=== PATIENT | female | born 1950 | race Caucasian/White ===

== ENCOUNTER 2023-06-15 07:32 | Outpatient (OUT) | payer MEDICARE, SELFPAY ==
[2023-06-15 08:01] LABS: Basophils Absolute Auto 0.1 10^3/uL (0.0-0.1); Basophils Percent Auto 0.6 % (0.2-2.0); Eosinophils Absolute Auto 0.9 10^3/uL (0.0-0.7); Hematocrit 44.2 % (36.0-48.0); Hemoglobin 13.7 g/dL (12.0-16.0); Immature Granulocytes Abs Auto 0.01 10^3/uL (0.00-0.03); Immature Granulocytes Pct Auto 0.1 % (0.0-0.5); Lymphocytes Absolute Auto 1.9 10^3/uL (1.2-3.8); Lymphocytes Percent Auto 24.5 % (20.5-60.0); Mean Corpuscular Hemoglobin 29.9 pg (26.7-34.0); Mean Corpuscular Volume 96.5 fL (81.0-99.0); Mean Platelet Volume 11.5 fL (9.5-13.5); Monocytes Absolute Auto 0.6 10^3/uL (0.3-0.8); Monocytes Percent Auto 7.4 % (1.7-12.0); Neutrophils Absolute Auto 4.4 10^3/uL (1.4-6.5); Neutrophils Percent Auto 56.4 % (43.0-75.0); Platelet Count 224 10^3/uL (150-450); Red Blood Count 4.58 10^6/uL (4.20-5.40); White Blood Count 7.8 10^3/uL (4.0-11.0)
[2023-06-15 08:05] LABS: Alanine Aminotransferase 16 U/L (14-59); Albumin Globulin Ratio 0.9; Albumin Level 3.5 g/dL (3.4-5.0); Alkaline Phosphatase 105 U/L (46-116); Anion Gap 10.9; Aspartate Amino Transferase 8 U/L (15-37); Bilirubin Total 0.6 mg/dL (0.2-1.0); Calcium 9.1 mg/dL (8.5-10.1); Carbon Dioxide 32.8 mmol/L (21.0-32.0); Chloride 102 mmol/L (98-107); Cholesterol 288 mg/dL (<=200); Estimated GFR (African America >60 (>=60); Estimated GFR (Non-African Ame >60 (>=60); Globulin 3.9 g/dL; Glucose 98 mg/dL (74-106); HDL Cholesterol 72 mg/dL (40-60); Potassium 3.7 mmol/L (3.5-5.1); Sodium 142 mmol/L (136-145); Total Protein 7.4 g/dL (6.4-8.2); Triglycerides 85 mg/dL (<=150)
== END 2023-06-15 07:33 | disposition home or self-care (01) ==
LOC: LAB 07:35
PROVIDERS: PCP Nurse Practitioner Family; Visit Provider Nurse Practitioner Family
DX: I10 Essential (primary) hypertension (principal)
CPT/HCPCS: 36415; 80053; 80061; 85025

== ENCOUNTER 2023-12-25 13:11 | Outpatient (OUT) | payer MEDICARE, SELFPAY ==
--- NOTE | 2023-12-25 | MM_ITS ---
Patient Name: WICHO RAYMOND MR#: [id number] : 1950 Exam Date: 12/25/2023 Ordering Doctor: LEOPOLDO CHRISTIANSON FINISHER DENTURE-C RADIOLOGY REPORT PROCEDURE: MM TOMOSYNTHESIS SCREENING BI COMPARISON: MG MAMM SCREEN 3D CHON CAD, 03/02/2022. MG MAMM DIAGNOSTIC 3D CHON CAD, 03/08/2021. MG MAMM CHON SCRN W CAD DIG, 03/17/2015. INDICATIONS: Screening for malignant neoplasm Calculator Name NCI Breast Cancer Risk Assessment Tool 5 Year Breast Cancer Risk 4.20% Lifetime Breast Cancer Risk 8.90% Personal Breast Cancer No Personal Ovarian Cancer No Treatments None Family Cancers None LOCATION: [facility] BREAST COMPOSITION: There are scattered areas of fibroglandular density. FINDINGS: DIAGNOSTIC CATEGORY 2--BENIGN FINDING: RIGHT BREAST: No significant suspicious finding. Scattered benign-appearing calcifications are present. No significant change has occurred. LEFT BREAST: Stable calcifications, postsurgical/biopsy scarring, and architectural distortion. No new findings. RECOMMENDATIONS: ROUTINE MAMMOGRAM AND CLINICAL EVALUATION IN 12 MONTHS. PLEASE NOTE: A NORMAL MAMMOGRAM DOES NOT EXCLUDE THE POSSIBILITY OF BREAST CANCER. A CLINICALLY SUSPICIOUS PALPABLE LUMP SHOULD BE BIOPSIED. Dictated by: Hilton Sheth M.D. on 12/26/2023 at 15:35 Approved by: Hilton Sheth M.D. on 12/26/2023 at 15:40
== END 2023-12-25 13:12 | disposition home or self-care (01) ==
LOC: MAMMO 13:11
PROVIDERS: PCP Nurse Practitioner Family; Visit Provider Nurse Practitioner Family
DX: Z12.31 Encounter for screening mammogram for malignant neoplasm of breast (principal)
CPT/HCPCS: 77063; 77067

== ENCOUNTER 2024-07-19 09:58 | Outpatient (OUT) | payer MEDICARE, SELFPAY ==
--- OUTSIDE RECORDS SUMMARY | 2024-07-19 10:16 | XMS_ITS | CCD ---
Author Organization [facility] Care Team Providers Care Blasting Gang Miner Name Role Phone SUKHWINDER LUNSFORD Admitting Unavailable ZIEBLAMIN, DR HILTON Razo Consulting Unavailable SUKHWINDER LUNSFORD Attending Unavailable TUAN, DR SINGH Primary Care Unavailable SUKHWINDER LUNSFORD Consulting Unavailable AUDREY, DR RANGEL Attending Unavailable AUDREY, DR RANGEL Consulting Unavailable AUDREY, DR RANGEL Admitting Unavailable TUAN, DR SINGH Primary Care Unavailable AUDREY, DR RANGEL Attending Unavailable TUAN, DR SINGH Primary Care Unavailable [place], DR YIN Barndt Consulting Unavailable AUDREY, DR RANGEL Admitting Unavailable AUDREY, DR RANGEL Consulting Unavailable CHEPE Sofia Attending Provider Jeanne Sofia Unavailable CHEPE Sofia Attending Provider [phone] NO FAMILY, PHYSICIAN Primary Care Provider Unava ilable DO Reji Uriarte Emergency Provider Quynh Lomas Unavailable [phone] Reji Uriarte Attending Unavailable Reji Uriarte Admitting Unavailable NO FAMILY, PHYSICIAN Primary Care Unavailable Jeanne Sofia Attending Unavailable Jeanne Sofia Admitting Unavailable Allergies Allergy Classification Reported Allergen(s) Allergy Type Date of Onset Reaction(s) Facility (1 source) Adhesive agent Drug allergy (disorder) 04-17-2015 [facility] Repository Medications Current Medications Medication Drug Class(es) Dates Sig (Normalized) Sig (Original) atorvastatin 10 mg oral tablet (11 sources) HMG-CoA Reductase Inhibitor Start: 01-04-2024 End: 07-10-2024 take 1 tablet by mouth once daily Atorvastatin 10 mg tablet Active 10 MG PO Daily 90 90 July 10, 2024 8:50am Start: 12-06-2023 End: 01-04-2024 take 1 tablet by mouth once daily Atorvastatin 10 mg tablet Discontinued 0 .ROUTE .COMPLEX 90 December 06, 2023 6:17pm January 04, 2024 8:15am take 1 tablet by mouth once daily Start: 12-06-2023 End: 01-04-2024 take 1 tablet by mouth once daily Atorvastatin Discontinued 0 .ROUTE .COMPLEX 90 December 06, 2023 7:17pm January 04, 2024 9:15am take 1 tablet by mouth once daily Start: 12-06-2023 End: 12-06-2023 take 1 tablet by mouth once daily Atorvastatin 10 mg tablet Discontinued 10 MG PO Daily December 05, 2023 11:00pm December 06, 2023 6:18pm Start: 06-20-2023 take 1 tablet by moe th every twenty-four hours Atorvastatin Calcium 10 MG 1 tablet Orally Once a day for 90 days May, Active carvedilol 12.5 mg oral tablet (10 sources) alpha-Adrenergic [place], beta-Adrenergic [place] Start: 01-16-2024 End: 07-10-2024 take 1 tablet by mouth twice daily at mealtime Carvedilol 12.5 mg tablet Active 0 .ROUTE .COMPLEX 180 July 10, 2024 8:50am take 1 tablet by mouth twice a day with food Start: 06-05-2023 End: 01-16-2024 take 1 tablet by mouth twice daily Carvedilol 12.5 mg tablet Discontinued 12.5 MG PO Twice daily June 05, 2023 12:00am January 16, 2024 2:17pm Carvedilol Activ e losartan potassium 50 mg oral tablet (8 sources) Angiotensin 2 Receptor [place] Start: 12-26-2023 End: 07-10-2024 take 1 tablet by mouth once daily Losartan 50 mg tablet Active 50 MG PO Daily 90 July 10, 2024 8:50am Start: 06-12-2023 take 1 tablet by moe th every twenty-four hours Losartan Potassium 50 MG 1 tablet Orally Once a day for 30 days May, Active nitrofurantoin, macrocrystals 25 mg / nitrofurantoin, monohydrate 75 mg oral capsule (4 sources) Nitrofuran Antibacterial Start: 04-05-2023 take 1 capsule by mouth every twelve hours Macrobid 100 MG 1 cap(s) Orally bid for 5 day(s) Mar, Active Start: 11-20-2018 take 1 capsule by mo uth every twelve hours Macrobid 100 MG 1 capsule with food Orally every 12 hrs for 7 day(s) October, Not-Taking Completed/Discontinued Medications Medication Drug Class(es) Dates Sig (Normalized) Sig (Original) cloNIDine hydrochloride 0.2 mg oral tablet (3 sources) Central alpha-2 Adrenergic Agonist Start: 06-05-2023 End: 12-26-2023 take 1 tablet by mouth once daily as needed Clonidine Hcl 0.2 mg tablet Discontinued 0.2 MG PO Daily as needed for hypertensive emergency June 05, 2023 1:37pm December 26, 2023 8:56am methylPREDNISolone (5 sources) Corticosteroid Start: 11-16-2015 Depo-Medrol 80 mg October, phenazopyridine hydrochloride 200 mg oral tablet (2 sources) Start: 11-20-2018 take 1 tablet by mouth every eight hours Pyridium 200 MG 1 tablet after meals Orally Three times a day for 2 day(s) October, Not-Taking Problems Active Problems Problem Classification Problem Date Documented Date Episodic/Chronic Acquired foot deformities (1 source) Bunion; Translations: [Bunion of right foot] 07-10-2024 Episodic Cancer of breast (7 sources) History of malignant neoplasm of breast; Translations: [Personal history of malignant neoplasm of breast] Episodic Disorders of lipid metabolism (9 sources) Mixed hyperlipidemia; Translations: [Mixed hyperlipidemia] Chronic Essential hypertension (13 sources) Hypertensive disorder; Translations: [Essential (primary) hypertension] Onset: 06-05-2023 06-05-2023 Chronic Genitourinary symptoms and ill-defined conditions (3 sources) Dysuria; Translations: [Dysuria] Onset: 04-05-2023 Episodic Immunizations and screening for infectious disease (1 source) Encounter for screening for human papillomavirus (HPV); Translations: [ENC SCREENING HUMAN PAPILLOMAVIRUS] Onset: 02-04-2022 Episodic Osteoporosis (1 source) Age-related osteoporosis without current pathological fracture; Translations: [AGE-REL OSTEOPOR W/O CURR PATH FX] Onset: 03-10-2022 Chronic Other screening for suspected conditions (not mental disorders or infectious disease) (9 sources) Encounter for screening mammogram for malignant neoplasm of breast; Translations: [Encounter for screening for malignant neoplasm of cervix] Onset: 02-03-2022 Episodic Residual codes; unclassified (1 source) Asymptomatic menopausal state; Translations: [ASYMPTOMATIC MENOPAUSAL STATE] Onset: 03-10-2022 Episodic Residual codes; unclassified (2 sources) Normal body mass index; Translations: [Other specified conditions influencing health status] 01-08-2024 Episodic Screening and history of mental health and substance abuse codes (1 source) Personal history of nicotine dependence Episodic Urinary tract infections (2 sources) Acute cystitis without hematuria Episodic Past or Other Problems Problem Classification Problem Date Documented Da te Episodic/Chronic Nonmalignant breast conditions (4 sources) Unspecified lump in the left breast, upper inner quadrant; Translations: [UNS LUMP IN LT BREAST UPR INR QUAD] Onset: 03-30-2021 Episodic Results Test Name Value Interpretation Reference Range Facility Activated partial thrombopla stin time (aPTT) in platelet poor plasma by coagulation aOrdered By: Reji Uriarte on 06-05-2023 aPTT Coag (PPP) [Time] 30.2 s 25.1-36.5 [facility] Comment on above: A hematocrit value g reater than 55% may lead to inaccurate results in coagulation testing. Patients having hematocrit values >55% require a special collection tube for coagulation studies. Please contact the laboratory at [phone] for redraw instructions. Alanine aminotransferase [En zymatic activity/volume] in Serum or PlasmaOrdered By: Reji Uriarte on 06-05-2023 ALT [Catalytic activity/Vol] 10 U/L 7-52 [facility] Albumin [Mass/volume] in Ser um or Plasma by Bromocresol green (BCG) dye binding methoOrdered By: Reji Uriarte on 06-05-2023 Albumin BCG dye [Mass/Vol] 4.2 g/dL 3.5-5.7 [facility] Alkaline phosphatase [Enzyma tic activity/volume] in Serum or PlasmaOrdered By: Reji Uriarte on 06-05-2023 ALP [Catalytic activity/Vol] 99 U/L 34-104 [facility] Aspartate aminotransferase [ Enzymatic activity/volume] in Serum or PlasmaOrdered By: Reji Uriarte on 06-05-2023 AST [Catalytic activity/Vol] 13 U/L 13-39 [facility] B-Type Natriuretic Peptideon 06-05-2023 Natriuretic peptide B (Bld) [Mass/Vol] 69.0 pg/mL Normal 5-100 [facility] Comment on above: Result Comment: PERF ORMED BY: [place] [address] PATHOLOGIST RETORT FURNACE HELPER LARISSA SOTO M.D. Performed By: #### P T, PTT, HS TROP, CBC, BNP, CK #### [facility] [address] Basic Metabolic Panelon 05-26 Anion gap [Moles/Vol] 10.5 mmol/L Normal 6.0-15.0 [facility] Comment on above: Performed By: #### B MP, HEPATIC #### [facility] [address] Calcium [Mass/Vol] 9.1 mg/dL Normal 8.6-10.3 [facility] Comment on above: Performed By: #### B MP, HEPATIC #### [facility] [address] [place] [address] [place] Chloride [Moles/Vol] 104 mmol/L Normal 98-107 [facility] Comment on above: Performed By: #### B MP, HEPATIC #### [facility] [address] CO2 [Moles/Vol] 27.3 mmol/L Normal 21.0-31.0 [facility] Comment on above: Performed By: #### B MP, HEPATIC #### [facility] [address] [place] [address] [place] Creatinine [Mass/Vol] 0.64 mg/dL Normal 0.60-1.20 [facility] Comment on above: Performed By: #### B MP, HEPATIC #### [facility] [address] [place] [address] [place] Creatinine Clr Calc Pharmacy 60.29 Normal [facility] Comment on above: Result Comment: PERF ORMED BY: [facility] [address] [place] [address] PATHOLOGIST RETORT FURNACE HELPER LARISSA SOTO M.D. Performed By: #### B MP, HEPATIC #### [facility] [address] [place] [address] [place] GFR/1.73 sq M.predicted MDRD (S/P/Bld) [Vol rate/Area] mL/min/{1.73_m2} Normal [facility] Comment on above: Performed By: #### B MP, HEPATIC #### [facility] [address] Glucose [Mass/Vol] 94 mg/dL Normal 70-100 [facility] Comment on above: Result Comment: [facility] Glucose Reference Range is dependent on time and content of last meal. Glucose of more than 200 mg/dL in a nonstressed, ambulatory subject supports the diagnosis of Diabetes Mellitus. ADA recommended reference range Performed By: #### B MP, HEPATIC #### [facility] [address] [place] [address] [place] Potassium [Moles/Vol] 3.8 mmol/L Normal 3.5-5.1 [facility] Comment on above: Performed By: #### B MP, HEPATIC #### [facility] [address] [place] [address] [place] Sodium [Moles/Vol] 138 mmol/L Normal 136-145 [facility] Comment on above: Performed By: #### B MP, HEPATIC #### [facility] [address] [place] [address] [place] Urea nitrogen [Mass/Vol] 16 mg/dL Normal 7-25 [facility] Comment on above: Performed By: #### B MP, HEPATIC #### [facility] [address] [place] [address] [place] Basophils Auto (Bld) [#/Vol] Ordered By: Reji Uriarte on 06-05-2023 Basophils (Bld) [#/Vol] 0.1 10*3/uL 0.0-0.2 [facility] Basophils/100 WBC Auto (Bld) Ordered By: Reji Uriarte on 06-05-2023 Basophils/100 WBC (Bld) 1.2 % . [facility] Bilirubin.direct [Mass/volum e] in Serum or PlasmaOrdered By: Reji Uriarte on 06-05-2023 Bilirubin.direct [Mass/Vol] 0.10 mg/dL 0.03-0.18 [facility] Bilirubin.total [Mass/volume ] in Serum or PlasmaOrdered By: Reji Uriarte on 06-05-2023 Bilirubin [Mass/Vol] 0.8 mg/dL 0.3-1.[address] [facility] [address] head/brain wo conon 06-05 CT head/brain wo con [facility] [address] [place] [address] [place] [address] CT Scan Report Signed Patient: Lori Raymond MR#: [id number] 882 : 1950 Acct:[id number] Age/Sex: 72 / F ADM Date: 06/05/23 Loc: ER Room: Type: PRE ER Attending Dr: Copies to: Reji Uriarte DO Ordering Provider: Reji Uriarte DO Date of Service: 06/05/23 CT/CT head/brain wo con: elevated BP, vision changes Unenhanced head CT TECHNIQUE: Contiguous axial imaging of the head. The CT exam was performed using one or more the following dose reduction techniques: Automated exposure control, adjustment of the MA and/or Kv according to patient size, or use of the iterative reconstruction technique. COMPARISON: None HISTORY: Hypertension. Visual changes. VENTRICLES: Within normal limits ATROPHY: Mild atrophy BRAIN PARENCHYMA: Decreased density of the white matter is most consistent with chronic small vessel disease. HEMORRHAGE: None HERNIATION: No mass effect or herniation INFARCTION: No recent vascular distribution infarction is seen. EXTRA-AXIAL FLUID COLLECTIONS None MIDBRAIN: Unremarkable SUZANNE: Unremarkable MEDULLA: Unremarkable SINUSES: Unremarkable ORBITS: Grossly unremarkable MASTOIDS: Unremarkable BONY STRUCTURES Intact ADDITIONAL FINDINGS: Atherosclerosis of carotid siphons. CT/CT head/brain wo con IMPRESSION: No acute findings. Impression dictated by: Tariq Shahid M.D.06/05/2023 12:50 PM Dictation Location: [place] [address] Transcribed By: [facility] 06/05/23 1259 Dictated By: Tariq Shahid DO 06/05/23 1243 Signed By: 06/05/23 1250 Normal [facility] Calcium [Mass/volume] in Ser um or PlasmaOrdered By: Reji Uriarte on 06-05-2023 Calcium [Mass/Vol] 9.1 mg/dL 8.6-10.3 [facility] Carbon dioxide, total [Moles /volume] in Serum or PlasmaOrdered By: Reji Uriarte on 06-05-2023 CO2 [Moles/Vol] 27.3 mmol/L 21.0-31.0 [facility] Chloride [Moles/volume] in S tahmina or PlasmaOrdered By: Reji Uriarte on 06-05-2023 Chloride [Moles/Vol] 104 mmol/L 98-107 [facility] Complete Blood Count Auto Di ffon 06-05-2023 Basophils (Bld) [#/Vol] 0.1 10*3/uL Normal 0.0-0.2 [facility] Comment on above: Result Comment: PERF ORMED BY: [place] [address] PATHOLOGIST [employer] F[employer]NACE HELPER LARISSA SOTO M.D. Performed By: #### P T, PTT, HS TROP, CBC, BNP, CK #### [address] Basophils/100 WBC (Bld) 1.2 % Normal . [facility] Comment on above: Performed By: #### P T, PTT, HS TROP, CBC, BNP, CK #### [facility] [address] [place] [address] [place] Eosinophils (Bld) [#/Vol] 0.8 10*3/uL High 0.0-0.45 [facility] Comment on above: Performed By: #### P T, PTT, HS TROP, CBC, BNP, CK #### [address] Eosinophils/100 WBC (Bld) 8.8 % Normal . [facility] Comment on above: Performed By: #### P T, PTT, HS TROP, CBC, BNP, CK #### [place] [address] [place] Erythrocyte distribution width (RBC) [Ratio] 13.2 % Normal 11.9-15.3 [facility] Comment on above: Performed By: #### P T, PTT, HS TROP, CBC, BNP, CK #### [facility] [address] Hematocrit (Bld) [Volume fraction] 41.9 % Normal 34.0-46.4 [facility] Comment on above: Performed By: #### P T, PTT, HS TROP, CBC, BNP, CK #### [address] Hemoglobin (Bld) [Mass/Vol] 13.9 g/dL Normal 11.8-15.4 [facility] Comment on above: Performed By: #### P T, PTT, HS TROP, CBC, BNP, CK #### [address] Lymphocytes (Bld) [#/Vol] 2.1 10*3/uL Normal 1.00-4.8 [facility] Comment on above: Performed By: #### P T, PTT, HS TROP, CBC, BNP, CK #### [address] Lymphocytes/100 WBC (Bld) 23.6 % Normal . [facility] Comment on above: Performed By: #### P T, PTT, HS TROP, CBC, BNP, CK #### [address] MCH (RBC) [Entitic mass] 30.4 pg Normal 24.7-34.3 [facility] Comment on above: Performed By: #### P T, PTT, HS TROP, CBC, BNP, CK #### [address] MCV (RBC) [Entitic vol] 91.6 fL Normal 80-100 [facility] Comment on above: Performed By: #### P T, PTT, HS TROP, CBC, BNP, CK #### [address] Mean Corpuscular HGB Conc 33.1 g/dL Normal 32.0-35.0 [facility] Comment on above: Performed By: #### P T, PTT, HS TROP, CBC, BNP, CK #### [address] Monocytes (Bld) [#/Vol] 0.6 10*3/uL Normal 0.0-0.8 [facility] Comment on above: Performed By: #### P T, PTT, HS TROP, CBC, BNP, CK #### [address] Monocytes/100 WBC (Bld) 17.60 % Normal 0.00-20.00 [facility] Comment on above: Performed By: #### P T, PTT, HS TROP, CBC, BNP, CK #### [address] Monocytes/100 WBC (Bld) 7.0 % Normal . [facility] Comment on above: Performed By: #### P T, PTT, HS TROP, CBC, BNP, CK #### [address] Neutrophils (Bld) [#/Vol] 5.2 10*3/uL Normal 1.8-7.7 [facility] Comment on above: Performed By: #### P T, PTT, HS TROP, CBC, BNP, CK #### [address] Neutrophils/100 WBC (Bld) 59.4 % Normal . [facility] Comment on above: Performed By: #### P T, PTT, HS TROP, CBC, BNP, CK #### [place] [address] [place] NRBC% 0.1 /100{WBC} Normal 0-0.5 [facility] Comment on above: Performed By: #### P T, PTT, HS TROP, CBC, BNP, CK #### [address] Platelet mean volume (Bld) [Entitic vol] 10.5 fL Normal 6.3-10.7 [facility] Comment on above: Performed By: #### P T, PTT, HS TROP, CBC, BNP, CK #### [facility] [address] Platelets (Bld) [#/Vol] 244 10*3/uL Normal 150-450 [facility] Comment on above: Performed By: #### P T, PTT, HS TROP, CBC, BNP, CK #### [facility] [address] RBC (Bld) [#/Vol] 4.58 10*6/uL Normal 3.60-5.00 [facility] Comment on above: Performed By: #### P T, PTT, HS TROP, CBC, BNP, CK #### [facility] [address] [place] [address] WBC (Bld) [#/Vol] 8.7 10*3/uL Normal 3.8-11.6 [facility] Comment on above: Performed By: #### P T, PTT, HS TROP, CBC, BNP, CK #### [facility] [address] Creatine Kinaseon 06-05-2023 CK [Catalytic activity/Vol] 41 U/L Normal 30-223 [facility] Comment on above: Performed By: #### P T, PTT, HS TROP, CBC, BNP, CK ####[facility] [address] [place] [address] Creatine kinase [Enzymatic a ctivity/volume] in Serum or PlasmaOrdered By: Reji Uriarte on 06-05-2023 CK [Catalytic activity/Vol] 41 U/L 30-223 [facility] Creatinine [Mass/volume] in Serum or PlasmaOrdered By: Reji Uriarte on 06-05-2023 Creatinine [Mass/Vol] 0.64 mg/dL 0.60-1.20 [facility] ECG 12 lead ECGon 06-05-2023 ECG 12 lead ECG [facility] [address] [place] [address] [place] [address] Electrocardiograph Report Signed Patient: Lori Raymond MR#: [id number] 882 : 1950 Acct:[id number] Age/Sex: 72 / F ADM Date: 06/05/23 Loc: ER Room: Type: [facility] ER Attending Dr: Ordering Provider: Reji Uriarte DO Date of Service: 06/05/2305/18/1201 ECG/ECG 12 lead ECG: Recheck/Abnormal Lab/Rx Copies to: Test Reason : Blood Pressure : 215/090 mmHG Vent. Rate : 060 BPM Atrial Rate : 060 BPM P-R Int : 142 ms QRS Dur : 082 ms QT Int : 396 ms P-R-T Axes : 049 057 090 degrees QTc Int : 396 ms Normal sinus rhythm Nonspecific ST and T wave abnormality Abnormal ECG When compared with ECG of 01-AUG-2014 13:30, No significant change was found Confirmed by Reji Uriarte DO ([id number]) on 06/05/2023 7:09:16 PM Referred By: Electronically Signed By:Reji Uriarte DO Transcribed By: MUS Signed By Reji Uriarte DO 3 1909 Normal [facility] Eosinophils Auto (Bld) [#/Vo l]Ordered By: Reji Uriarte on 06-05-2023 Eosinophils (Bld) [#/Vol] 0.8 10*3/uL 0.0-0.45 [facility] Eosinophils/100 WBC Auto (Bl d)Ordered By: Reji Uriarte on 06-05-2023 Eosinophils/100 WBC (Bld) 8.8 % . [facility] Erythrocyte distribution wid th Auto (RBC) [Ratio]Ordered By: Reji Uriarte on 06-05-2023 Erythrocyte distribution width (RBC) [Ratio] 13.2 % 11.9-15.3 [facility] Globulin Calc (S) [Mass/Vol] Ordered By: Reji Uriarte on 06-05-2023 Globulin (S) [Mass/Vol] 3.2 g/dL [facility] Glucose [Mass/volume] in Ser um or PlasmaOrdered By: Reji Uriarte on 06-05-2023 Glucose [Mass/Vol] 94 mg/dL 70-100 [facility] Comment on above: ADA recommended refe rence rangeRandom Glucose Reference Range is dependent on time and content of last meal. Glucose of more than 200 mg/dL in a nonstressed, ambulatory subject supports the diagnosis of Diabetes Mellitus. Hematocrit Auto (Bld) [Volum e fraction]Ordered By: Reji Uriarte on 06-05-2023 Hematocrit (Bld) [Volume fraction] 41.9 % 34.0-46.4 [facility] Hemoglobin [Mass/volume] in BloodOrdered By: Reji Uriarte on 06-05-2023 Hemoglobin (Bld) [Mass/Vol] 13.9 g/dL 11.8-15.4 [facility] Hepatic Panelon 06-05-2023 Albumin [Mass/Vol] 4.2 g/dL Normal 3.5-5.7 [facility] Comment on above: Performed By: #### B MP, HEPATIC #### [facility] [address] [place] [address] [place] Albumin/Globulin [Mass ratio] 1.3 {ratio} Normal [facility] Comment on above: Performed By: #### B MP, HEPATIC #### [facility] [address] [place] [id number] [place] ALP [Catalytic activity/Vol] 99 U/L Normal 34-104 [facility] Comment on above: Performed By: #### B MP, HEPATIC #### [facility] [address] [place] [address] [place] ALT [Catalytic activity/Vol] 10 U/L Normal 7-52 [facility] Comment on above: Performed By: #### B MP, HEPATIC #### [facility] [address] [place] [address] [place] AST [Catalytic activity/Vol] 13 U/L Normal 13-39 [facility] Comment on above: Performed By: #### B MP, HEPATIC #### [facility] [address] [place] [id number] [place] Bilirubin [Mass/Vol] 0.8 mg/dL Normal 0.3-1.0 [facility] Comment on above: Performed By: #### B MP, HEPATIC #### [facility] [address] Bilirubin,Indirect 0.7 mg/dL Normal [facility] Comment on above: Performed By: #### B MP, HEPATIC #### [facility] [address] Bilirubin.indirect [Mass/Vol] 0.10 mg/dL Normal 0.03-0.18 [facility] Comment on above: Performed By: #### B MP, HEPATIC #### [facility] [address] Globulin (S) [Mass/Vol] 3.2 g/dL Normal [facility] Comment on above: Performed By: #### B MP, HEPATIC #### [facility] [address] Protein [Mass/Vol] 7.4 g/dL Normal 6.4-8.9 [facility] Comment on above: Performed By: #### B MP, HEPATIC #### [facility] [address] [place] [address] INR in Platelet poor plasma by Coagulation assayOrdered By: Reji Uriarte on 06-05-2023 INR Coag (PPP) [Relative time] 1.0 {INR} [facility] Comment on above: INR Therapeutic Rang e A) Pre- and Peroperative OAT started two weeks before surgery. NOT HIP SURGERY: 1.5 - 2.5 HIP SURGERY: 2 - 3B) Primary and secondary prevention of venous THROMBOSIS: 2 - 3C) Active venous thrombosis, pulmonary embolismand prevention of recurrent venous thrombosis: 2 - 3D) Prevention of arterial thromboembolismincluding patients with mechanical heart valves: 3 - 4.5 Leukocytes [#/volume] correc kristan for nucleated erythrocytes in Blood by Automated counOrdered By: Reji Uriarte on 06-05-2023 WBC corrected for nucl RBC Auto (Bld) [#/Vol] 8.7 10*3/uL 3.8-11.6 [facility] Lymphocytes Auto (Bld) [#/Vo l]Ordered By: Reji Uriarte on 06-05-2023 Lymphocytes (Bld) [#/Vol] 2.1 10*3/uL 1.00-4.8 [facility] Lymphocytes/100 WBC Auto (Bl d)Ordered By: Reji Uriarte on 06-05-2023 Lymphocytes/100 WBC (Bld) 23.6 % . [facility] MCH Auto (RBC) [Entitic mass ]Ordered By: Reji Uriarte on 06-05-2023 MCH (RBC) [Entitic mass] 30.4 pg 24.7-34.3 [facility] MCHC Auto (RBC) [Mass/Vol]Or dered By: Reji Uriarte on 06-05-2023 MCHC (RBC) [Mass/Vol] 33.1 g/dL 32.0-35.0 [facility] MCV Auto (RBC) [Entitic vol] Ordered By: Reji Uriarte on 06-05-2023 MCV (RBC) [Entitic vol] 91.6 fL 80-100 [facility] Monocyte distribution width [Entitic volume] in Blood by AutomatedOrdered By: Reji Uriarte on 06-05-2023 Monocyte distribution width Auto (Bld) [Entitic vol] 17.60 % 0.00-20.00 [facility] Monocytes Auto (Bld) [#/Vol] Ordered By: Reji Uriarte on 06-05-2023 Monocytes (Bld) [#/Vol] 0.6 10*3/uL 0.0-0.8 [facility] Monocytes/100 WBC Auto (Bld) Ordered By: Reji Uriarte on 06-05-2023 Monocytes/100 WBC (Bld) 7.0 % . [facility] Natriuretic peptide B [Mass/ Vol]Ordered By: Reji Uriarte on 06-05-2023 Natriuretic peptide B (Bld) [Mass/Vol] 69.0 pg/mL 5-100 [facility] Neutrophils Auto (Bld) [#/Vo l]Ordered By: Reji Uriarte on 06-05-2023 Neutrophils (Bld) [#/Vol] 5.2 10*3/uL 1.8-7.7 [facility] Neutrophils/100 WBC Auto (Bl d)Ordered By: Reji Uriarte on 06-05-2023 Neutrophils/100 WBC (Bld) 59.4 % . [facility] No Panel InformationOrdered By: Reji Uriarte on 06-05-2023 Estimated GFR (CKD-EPI) > 60.0 mL/Min [facility] Creatinine Clearance (Chem 60.29 [facility] Nucleated erythrocytes [Pres ence] in Blood by Automated countOrdered By: Reji Uriarte on 06-05-2023 Nucleated RBC Auto Ql (Bld) 0.1 /100{WBC} 0-0.5 [facility] Partial Thromboplastin Timeo n 06-05-2023 aPTT Coag (Bld) [Time] 30.2 s Normal 25.1-36.5 [facility] Comment on above: Result Comment: A he matocrit value greater than 55% may lead to inaccurate results in coagulation testing. Patients having hematocrit values >55% require a special collection tube for coagulation studies. Please contact the laboratory at [phone] for redraw instructions. PERFORMED BY: [place] [address] PATHOLOGIST RETORT FURNACE HELPER LARISSA SOTO M.D. Performed By: #### P T, PTT, HS TROP, CBC, BNP, CK #### [facility] [address] Platelet mean volume Auto (B ld) [Entitic vol]Ordered By: Reji Uriarte on 06-05-2023 Platelet mean volume (Bld) [Entitic vol] 10.5 fL 6.3-10.7 [facility] Platelets Auto (Bld) [#/Vol] Ordered By: Reji Uriarte on 06-05-2023 Platelets (Bld) [#/Vol] 244 10*3/uL 150-450 [facility] Potassium [Moles/volume] in Serum or PlasmaOrdered By: Reji Uriarte on 06-05-2023 Potassium [Moles/Vol] 3.8 mmol/L 3.5-5.1 [facility] Protein [Mass/volume] in Ser um or PlasmaOrdered By: Reji Uriarte on 06-05-2023 Protein [Mass/Vol] 7.4 g/dL 6.4-8.9 [facility] Prothrombin Time INRon 06-05 INR Coag (PPP) [Relative time] 1.0 {INR} Normal [facility] Comment on above: Result Comment: INR Therapeutic Range A) Pre- and Peroperative OAT started two weeks before surgery. NOT HIP SURGERY: 1.5 - 2.5 HIP SURGERY: 2 - 3 B) Primary and secondary prevention of venous THROMBOSIS: 2 - 3 C) Active venous thrombosis, pulmonary embolism and prevention of recurrent venous thrombosis: 2 - 3 D) Prevention of arterial thromboembolism including patients with mechanical heart valves: 3 - 4.5 Performed By: #### P T, PTT, HS TROP, CBC, BNP, CK #### [facility] [address] [place] [id number] [facility] PT Coag (PPP) [Time] 12.2 s Normal 9.0-12.9 [facility] Comment on above: Result Comment: A he matocrit value greater than 55% may lead to inaccurate results in coagulation testing. Patients having hematocrit values >55% require a special collection tube for coagulation studies. Please contact the laboratory at [phone] for redraw instructions. Performed By: #### P T, PTT, HS TROP, CBC, BNP, CK #### [facility] [address] [place] [id number] [facility] Prothrombin time (PT)Ordered By: Reji Uriarte on 06-05-2023 PT Coag (PPP) [Time] 12.2 s 9.0-12.9 [facility] Comment on above: A hematocrit value g reater than 55% may lead to inaccurate results in coagulation testing. Patients having hematocrit values >55% require a special collection tube for coagulation studies. Please contact the laboratory at [phone] for redraw instructions. RBC Auto (Bld) [#/Vol]Ordere d By: Reji Uriarte on 06-05-2023 RBC (Bld) [#/Vol] 4.58 10*6/uL 3.60-5.00 [facility] Serum or plasma albumin/glob ulin mass ratioOrdered By: Reji Uriarte on 06-05-2023 Albumin/Globulin [Mass ratio] 1.3 {ratio} [facility] Serum or plasma anion gap de terminationOrdered By: Reji Uriarte on 06-05-2023 Anion gap [Moles/Vol] 10.5 mmol/L 6.0-15.0 [facility] Serum or plasma non-glucuron idated bilirubin measurement (mass/volume)Ordered By: Reji Uriarte on 06-05-2023 Bilirubin.indirect [Mass/Vol] 0.7 mg/dL [facility] Sodium [Moles/volume] in Ser um or PlasmaOrdered By: Reji Uriarte on 06-05-2023 Sodium [Moles/Vol] 138 mmol/L 136-145 [facility] Troponin I High Sensitivityo n 06-05-2023 Troponin I High Sensitivity 5.6 pg/mL Normal 0.0-15.0 [facility] Comment on above: Result Comment: PERF ORMED BY: [place] [address] PATHOLOGIST RETORT FURNACE HELPER LARISSA SOTO M.D. Performed By: #### P T, PTT, HS TROP, CBC, BNP, CK ####[facility] Troponin I.cardiac [Mass/vol ume] in Serum or Plasma by Detection limit <= 0.01 ng/Ordered By: Reji Uriarte on 06-05-2023 Troponin I.cardiac DL <= 0.01 ng/mL [Mass/Vol] 5.6 pg/mL 0.0-15.0 [facility] Urea nitrogen [Mass/volume] in Serum or PlasmaOrdered By: Reji Uriarte on 06-05-2023 Urea nitrogen [Mass/Vol] 16 mg/dL 7-25 [facility] WBC Auto (Bld) [#/Vol]Ordere d By: Reji Uriarte on 06-05-2023 WBC (Bld) [#/Vol] 8.7 10*3/uL 3.8-11.6 [facility] XR chest 1V portableon 06-05 XR chest 1V portable [facility] [place] [address] [place] [id number] XRay Report Signed Patient: Lori Raymond MR#: [id number] : 1950 Acct:[id number] Age/Sex: 72 / F ADM Date: 06/05/23 Loc: ER Room: Type: PRE ER Attending Dr: Copies to: Reji Uriarte DO Ordering Provider: Reji Uriarte DO Date of Service: 06/05/23 XR/XR chest 1V portable: Recheck/Abnormal Lab/Rx Plain film chest Single view HISTORY: Unable to see out of the left eye. High blood pressure. COMPARISON: 08/22/2014 FINDINGS: SUPPORT DEVICES: None POSTSURGICAL CHANGES: None HEART: Within normal limits PULMONARY DAMIR: Within normal limits MEDIASTINUM: Unremarkable LUNGS AND PLEURA: No acute lung process, pleural effusion or pneumothorax identified. Minor atelectasis. BONY STRUCTURES: Intact ADDITIONAL FINDINGS None XR/XR chest 1V portable IMPRESSION: No acute process. Impression dictated by: Tariq Shahid M.D.06/05/2023 12:30 PM Dictation Location: [place] [address] Transcribed By: [facility] 06/05/23 1230 Dictated By: Tariq Shahid DO 06/05/23 1227 Signed By: 06/05/23 1230 [facility] Urinalysis - AUTOMATEDon Appearance (U) clouyd [employer] Other Bilirubin Ql (U) Negative [employer] Other Color (U) yellow [employer] Other Glucose Ql (U) Negative [employer] Other Hemoglobin Ql (U) Negative [employer] Other Ketones Ql (U) Negative [employer] Other Leukocyte esterase Test strip Ql (U) trace [employer] Other Nitrite Ql (U) Negative [employer] Other pH (U) 7.5 [pH] [employer] Other Protein Ql (U) Negative [employer] Other Specific gravity (U) [Rel density] 1.020 [facility] Other Urobilinogen (U) [Mass/Vol] 1.0 mg/dL [employer] Other Urinalysis - AUTOMATED No [facility] Other Urine Cultureon 04-05-2023 Bacteria identified Cx Nom (U) Reason for Exam Dysuria Urine 40,000 colonies/ml mixed bacterial skin contaminants 2 Days PERFORMED BY: [place] [address] PATHOLOGIST RETORT FURNACE HELPER LARISSA SOTO M.D. Normal [facility] Comment on above: Performed By: #### C UU #### [address] Bacteria identified Cx Nom (U) [employer] Other Urine culture routineOrdered By: Jeanne Sofia on 04-05-2023 Bacteria identified Cx Nom (U) 2 Days [facility] XR DEXA BONE DENSITYon 03-02 XR DEXA BONE DENSITY EXAMINATION: XR DEX A BONE DENSITY, 03/02/2022 11:42 AM EDT HISTORY: Menopause present COMPARISON: None. TECHNIQUE: Dual-energy X-ray absorptiometry (DEXA) bone density study performed for the axial skeleton. FINDINGS: Bone mineral density AP spine L2-L4 measures 1.136 g percent meters squared. T score -0.5. WHO classification: Normal. Lowest bone mineral density left femoral neck measures 0.678 g/sq cm. T score -2.6. WHO classification: Osteoporosis IMPRESSION: Osteoporosis. High fracture risk Electronically authenticated by: YIN SCHILLING Date: 2022-03-02 15:27 Normal [facility] PAP ACOG PANEL 2: 30 to 65on 02-08-2022 . . Normal [facility] Comment on above: Performed By: #### 4 [id number] #### [facility] [address] [place] [address] Dr. Tammy Sweet Age Gdln ACOG Testing Comment Normal [facility] Comment on above: Result Comment: <21 or >65 or no age provided Performed By: #### 4 [id number] #### [facility] [address] [address] [address] Tammy Sweet DIAGNOSIS: Comment Normal [facility] Comment on above: Result Comment: NEGA TIVE FOR INTRAEPITHELIAL LESION OR MALIGNANCY. Performed By: #### 4 [id number] #### [facility] [address] [address] [address] Tammy Sweet Methodology: Comment Normal [facility] Comment on above: Result Comment: This liquid based ThinPrep(R) pap test was screened with the use of an image guided system. Performed By: #### 4 [id number] #### [facility] [address] [place] [address] Dr. Tammy Sweet Note: Comment [facility] Comment on above: Result Comment: The Pap smear is a screening test designed to aid in the detection of premalignant and malignant conditions of the uterine cervix. It is not a diagnostic procedure and should not be used as the sole means of detecting cervical cancer. Both false-positive and false-negative reports do occur. . Performed By: #### 4 [id number] #### [facility] [address] [address] [address] Tammy Sweet Performed by: Comment Normal [facility] Comment on above: Result Comment: Marlin Gonzales Electrostatic Powder Coating Technician (ASCP) Performed By: #### 4 [id number] #### [facility] [address] [place] [address] Dr. Tammy Sweet Specimen adequacy: Comment Normal [facility] Comment on above: Result Comment: Sati sfactory for evaluation. No endocervical component is identified. Performed By: #### 4 [id number] #### [facility] [address] [place] [address] Dr. Tammy Sweet Physician Referralon 021 Physician Referral [phone] [id number]:12 7 Normal [facility] Ambulatory Clinical Summaryo n 04-21-2021 Ambulatory Clinical Summary {[id number]-14- [id number]-b4-d0-t2-19-d1}C D:[id number] Normal [facility] Ambulatory Clinical Summary {[id number]-[id number]- t5-51-75-23-26-ok-34-90}C D:[id number] Normal [facility] Physician Referralon 021 Physician Referral [id number]:12 7 Normal [facility] CNOVon 04-09-2021 CNOV Office Visit (RADTSA ) ----- LORI RAYMOND ([id number]) 1950 F Date Time Provider Department 04/09/21 10:00 AM SUKHWINDER LUNSFORD During your visit today, we recorded the following information about you: Temperature Pulse Blood pressure Weight 98.2 degrees 74/minute 171/77 69.2 kg Sukhwinder Lunsford MD 04/28/2021 2:54 AM Addendum Radiation Oncology - Follow Up Note PATIENT NAME: Lori Raymond PATIENT DIAGNOSIS/PATIENT IDENTIFICATION: Ms. 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 Gong completing on 07/29/2015 (6120 cGy in 34 fractions). INTERVAL HISTORY/ROS: Ms. Raymond returns to clinic today approximately 4-1/2 years out from the completion of her radiation treatments to the left breast. She has been doing well clinically and notes an occasional twinge but no substantial pain or discomfort in the left breast or any skin irritation/breakdown. She reports intact range of motion and no signs of lymphedema. She denies feeling any new lumps or bumps. She endorses good energy appetite and hydration. She had a bilateral mammogram on 03/08/2021 which noted a 1.4 cm slightly spiculated mass in the posterior central left breast at approximately 12:00. This was confirmed on ultrasound and biopsy was recommended. Ultrasound-guided biopsy was performed in the 03/08/2000 hemoglobin returned as breast parenchyma, calcifications and debris with a definite evidence of malignancy. She otherwise denies any recent fevers, chills, headaches, difficulty with speech/swallowing, shortness of breath, chest pain/palpitations, abdominal pain, nausea, vomiting, change in bowel/urinary habits, difficulty with gait/balance, recent falls, etc. The remainder of the review of systems was performed and was otherwise noncontributory. ALLERGIES ALLERGIES No Known Allergies MEDICATIONS: No current outpatient medications on file. PHYSICAL EXAM: GENERAL: eldelry woman sitting in chair in no acute distress. VITALS: BP 171/77[repeat 182/84[ Pulse 74 Temp 98.2 Wt 152 lb 9.6 oz (69.2kg) SpO2 98% KPS: 90 HEENT: NC/AT, anicteric sclera HEART: [id number]: non-labored breathing ABDOMEN: soft MUSCULOSKELETAL: no peripheral edema, moves all extremities. NEURO: no focal deficit; AANDO X3. RADIOLOGIC DATA: Bilateral Mammogram and Left Breast US (03/08/2021) PATHOLOGIC DATA: 03/30/2021 ASSESSMENT AND PLAN: Ms. Raymond is a 70-year old woman with Stage IA ([id number]) infiltrating ductal carcinoma of the upper outer quadrant of left breast; status post lumpectomy and sentinel lymph node biopsy; status post radiation therapy to the left breast under the care of Dr. Gong completing on 07/29/2015 (6120 cGy in 34 fractions). Ms. Raymond is doing well clinically approximately 4 and half years after the completion of her radiation treatments with no appreciable sequela.. Her annual mammogram noted an abnormality in the area of the left breast which was biopsied and no evidence of malignancy was identified. She has now had multiple biopsies in this area due to abnormal imaging. 4 I will request a referral with her surgeon for further evaluation and surveillance recommendations. Otherwise I will plan to see her back in approximately 1 year with repeat mammogram. The patient is aware to contact the clinic in the interim should any questions or concerns arise. Thank you for allowing us to participate in the care of this patient. Signed by: Sukhwinder Lunsford MD I spent a total of 20 minutes on the date of the service which included preparing to see the patient, [id number] patient care and counseling and educating the patient/family/caregiver. This document has been created with the use of voice recognition technology. It may contain inaccuracies, misspellings, inaccurate syntax or inappropriate word context that are a result of the inadequacies/shortcomings of said technology/software. Referring Provider: STANTON GONG [[id number]] Allergies As of Date: 04/09/2021 (No Known Allergies) Date Reviewed: 04/09/2021 Reviewed by: Nanci Milian LPN - Fully Assessed Reason for Visit: Breast Cancer [519] Primary Visit Diagnosis:Malignant neoplasm of upper-outer quadrant of left breast in female, estrogen receptor positive (HCC) [C50.412, Z17.0] Other Visit Diagnosis:History of breast cancer in female [Z85.3] Order(s):CONSULT TO GENERAL SURGERY [9011] Order #: [id number]: 1 FUTURE Problem List As Of Date 04/09/2021 Noted Resolved Breast cancer (HCC) [C50.919] 04/10/2015 Breast cancer of upper-outer quadrant of left f*05/14/2015 History of breast cancer in female [Z85.3] 01/14/2016 Dispositio (more content not included)... Normal [facility] MAMMO POST BIOPSY LEFTon MAMMO POST BIOPSY LEFT Patient: LORI RAYMOND Exam Date: 03/30/2021 : 1950 Gender:F Ordering : DR. SUKHWINDER LUNSFORD M.D. Admission #: [id number] Family : Order #: [id number] CLICK HERE TO VIEW EXAM This report includes an Addendum and supersedes previous reports for this exam. RADIOLOGY REPORT PROCEDURE: MAMMOGRAM POST BIOPSY IMAGES COMPARISON: MAMM DIAGNOSTIC 3D CHON CAD, 03/08/2021. INDICATIONS: Lump in left breast BREAST COMPOSITION: Scattered areas fibroglandular density. FINDINGS: BIOPSY MARKER: A metallic marker has been placed in the targeted location within the upper inner quadrant, approximately 12:00 of the left breast. BREAST FINDINGS: Expected post biopsy findings. RECOMMENDATIONS: Dictated by: Hilton Sheth M.D. on 03/30/2021 at 14:22 Approved by: Hilton Sheht M.D. on 03/30/2021 at 14:23 ADDENDUM: FINDINGS: DIAGNOSTIC CATEGORY 3--PROBABLY BENIGN FINDING. THE FOLLOWING FINDING(S) HAS A HIGH PROBABILITY OF A BENIGN ETIOLOGY: RECOMMENDATIONS: SHORT TERM FOLLOW-UP DIAGNOSTIC MAMMOGRAM LEFT BREAST IN 6 MONTHS. Dictated by: Hilton Sheth M.D. on 04/08/2021 at 07:48 Approved by: Hilton Sheth M.D. on 04/08/2021 at 07:49 Normal [facility] US VAC ASST BX BRST LT W CLI Albert 03-30-2021 US VAC ASST BX BRST LT W CLIP Patient: LOIR RAYMOND Exam Date: 03/30/2021 : 1950 Gender:F Ordering : DR. SUKHIWNDER LUNSFORD M.D. Admission #: [id number] Family : Order #: [id number] CLICK HERE TO VIEW EXAM This report includes an Addendum and supersedes previous reports for this exam. RADIOLOGY REPORT PROCEDURE: ULTRASOUND BIOPSY VACCUUM ASSISTED LEFT WITH CLIP COMPARISON: MG MAMM DIAGNOSTIC 3D CHON CAD, 03/08/2021. US BREAST LEFT LIMITED, 03/08/2021. INDICATIONS: Lump in left breast DESCRIPTION: After obtaining informed consent, a vacuum assisted ultrasound-guided biopsy was performed in the usual sterile manner. The location of the biopsy was then marked as indicated below. FINDINGS: RECOMMENDATIONS: SPECIMEN #, LOCATION: 4 core samples, 12:00 Left breast near chest wall. BIOPSY NEEDLE: 13 gauge Elite (r) vacuum core biopsy needle. MARKERS(S) PLACED: A single metallic marker was placed in the appropriate targeted location. MEDICATION: Buffered 1% lidocaine with epinephrine administered locally. COMPLICATIONS: None. PATHOLOGY LAB: Pending. CONCLUSION: 1. Uneventful ultrasound-guided breast biopsy. 2. Pathology results are pending. An addendum to this report will be provided after pathology results are available. Dictated by: Hilton Sheth M.D. on 03/30/2021 at 14:20 Approved by: Hilton Sheth M.D. on 03/30/2021 at 14:22 ADDENDUM: Final pathologic diagnosis: Fragments of breast parenchyma, calcifications, and amorphous debris. Definite malignancy is not seen. This report was transmitted to the referring physician's office on April 07, 2021, and the office called to confirm receipt. Dictated by: Hilton Sheth M.D. on 04/08/2021 at 07:46 Approved by: Hilton Sheth M.D. on 04/08/2021 at 07:47 Normal [facility] 03-08-2021 CNPN Telephone (RADTSA) ----- LORI RAYMOND ([id number]) 1950 F Date Time Provider Department 03/08/21 Elaine ACOSTA During your visit today, we recorded the following information about you: David Ramirez RN 03/08/2021 9:21 AM Signed [facility] called requesting ultrasound order on patient due to abnormal Cassie. Please review and sign if agreeable. We need to fax to [phone]. DEWAYNE Londono MD 03/08/2021 9:28 AM Signed Signed - thanks! David Ramirez RN 03/08/2021 11:25 AM Signed Order faxed. David Ramirez RN Allergies As of Date: 03/08/2021 (No Known Allergies) Date Reviewed: 02/23/2020 Reviewed by: Sukhwinder Lunsford - Fully Assessed Reason for Visit: Orders [681] Primary Visit Diagnosis:History of breast cancer in female [Z85.3] Order(s):US BREAST LTD LT [[id number]] Order #: [id number] FUTURE Problem List As Of Date 03/08/2021 Noted Resolved Breast cancer (HCC) [C50.919] 04/10/2015 Breast cancer of upper-outer quadrant of left f*05/14/2015 History of breast cancer in female [Z85.3] 01/14/2016 Encounter Status:Closed by DAVID RAMIREZ on 03/08/21 [facility] 02-17-2021 CNPN Telephone (RADTSA) ----- LORI RAYMOND ([id number]) 1950 F Date Time Provider Department 02/17/21 SUKHWINDER LUNSFORD During your visit today, we recorded the following information about you: Nanci Milian LPN 02/17/2021 11:50 AM Signed I called to get an update on the status of Lori's mammogram as she has not had one since 01/17/20. She said she's been too busy to get her mammogram done and she's taking care of her who recently broke his arm. She would like to cancel her appt with Dr. Lunsford on 02/22/21 and she will call back to reschedule once she schedules her mammogram appt at [facility]. Clerical: Please cancel 02/22/[address] Lunsford. Pt will call back to reschedule. DR. Lunsford: Please sign new mammogram order as the one in [facility] will on 02/22/21. ELIZABETH Landaverde Sec 02/17/2021 11:55 AM Signed cxed appointment for dr yash Milian LPN 02/23/2021 11:37 AM Signed Mammogram order faxed to [facility]. Nanci Milian LPN Allergies As of Date: 02/17/2021 (No Known Allergies) Date Reviewed: 02/23/2020 Reviewed by: Sukhwinder Lunsford - Fully Assessed Reason for Visit: Appointment [186] Primary Visit Diagnosis:History of breast cancer in female [Z85.3] Order(s):[facility] DI[facility]ILAT [[id number]] Order #: [id number] FUTURE Problem List As Of Date 02/17/2021 Noted Resolved Breast cancer (HCC) [C50.919] 04/10/2015 Breast cancer of upper-outer quadrant of left f*05/14/2015 History of breast cancer in female [Z85.3] 01/14/2016 Encounter Status:Closed by NANCI MILIAN on 02/23/21 Normal [facility] Vital Signs Date Time Vital Sign Value Performing Clinician Facility 07-10-2024 08:44-0500 Body height 167.64 cm [facility] 07-10-2024 08:25-0500 Body mass index (BMI) [Ratio] 25 kg/m2 [facility] 07-10-2024 08:25-0500 Body temperature 96.4 [degF] [facility] 07-10-2024 08:25-0500 Body weight 70.36 kg [facility] 07-10-2024 08:25-0500 Diastolic blood pressure 78 mm[Hg] [facility] 07-10-2024 08:25-0500 Heart rate 64 /min [facility] 07-10-2024 08:25-0500 SaO2% (BldA) [Mass fraction] 99 % [facility] 07-10-2024 08:25-0500 Systolic blood pressure 132 mm[Hg] [facility] 01-08-2024 09:51-0400 Body height 167.64 cm [facility] 01-08-2024 09:51-0400 Body mass index (BMI) [Ratio] 25 kg/m2 [facility] 01-08-2024 09:51-0400 Body weight 70.3 kg [facility] 01-08-2024 09:51-0400 Diastolic blood pressure 78 mm[Hg] [facility] 01-08-2024 09:51-0400 Heart rate 58 /min [facility] 01-08-2024 09:51-0400 SaO2% (BldA) [Mass fraction] 98 % [facility] 01-08-2024 09:51-0400 Systolic blood pressure 136 mm[Hg] [facility] 07-10-2023 10:30-0500 Body height 167.64 cm [facility] Ces[facility] Other [employer] Other 07-10-2023 10:30-0500 Body mass index (BMI) [Ratio] 24.85 kg/m2 [facility] Carar Other [employer] Other 07-10-2023 10:30-0500 Body weight 69.85 kg Quynh Cesilia Other [employer] Other 07-10-2023 10:30-0500 Diastolic blood pressure 78 mm[Hg] [facility] Cesilia Other [employer] Other 07-10-2023 10:30-0500 SaO2% (BldA) [Mass fraction] 97 % [facility] Cesilia Other [employer] Other 07-10-2023 10:30-0500 Systolic blood pressure 130 mm[Hg] [facility] Cesilia Other [employer] Other 06-12-2023 11:00-0500 Body height 167.64 cm [facility]yn[facility] Cesilia Other [employer] Other 06-12-2023 11:00-0500 Body mass index (BMI) [Ratio] 24.79 kg/m2 [facility] Cesilia Other [employer] Other 06-12-2023 11:00-0500 Body weight 69.67 kg Quynh Cesilia Other [employer] Other 06-12-2023 11:00-0500 Diastolic blood pressure 96 mm[Hg] [facility] Cesilia Other [employer] Other 06-12-2023 11:00-0500 SaO2% (BldA) [Mass fraction] 96 % Quyn[facility] Cesilia Other [employer] Other 06-12-2023 11:00-0500 Systolic blood pressure 168 mm[Hg] [facility]yn[facility] Cesilia Other [employer] Other 06-05-2023 13:45-0500 Diastolic blood pressure 63 mm[Hg] PHYSICIAN NO [facility] 06-05-2023 13:45-0500 Heart rate 62 /min PHYSICIAN NO [facility] 06-05-2023 13:45-0500 Respiratory rate 18 /min PHYSICIAN NO [facility] 06-05-2023 13:45-0500 SaO2% (BldA) [Mass fraction] 98 % PHYSICIAN NO [facility] 06-05-2023 13:45-0500 Systolic blood pressure 133 mm[Hg] PHYSICIAN NO [facility] 06-05-2023 11:57-0500 Body height 165.1 cm PHYSICIAN NO [facility] 06-05-2023 11:57-0500 Body temperature 97.5 [degF] PHYSICIAN NO [facility] 06-05-2023 11:57-0500 Body weight 69.25 kg PHYSICIAN NO [facility] 04-05-2023 09:40-0400 Body height 167.64 cm Jeanne Sofia Other [facility] Other 04-05-2023 09:40-0400 Body mass index (BMI) [Ratio] 24.21 kg/m2 Jeanne Sofia Other [facility] Other 04-05-2023 09:40-0400 Body temperature 97.9 [degF] Jeanne Sofia Other [facility] Other 04-05-2023 09:40-0400 Body weight 68.04 kg Jeanne Sofia Other [facility] Other 04-05-2023 09:40-0400 Diastolic blood pressure 100 mm[Hg] Jeanne Sofia Other [facility] Other 04-05-2023 09:40-0400 Respiratory rate 18 /min Jeanne Sofia Other [facility] Other 04-05-2023 09:40-0400 SaO2% (BldA) [Mass fraction] 97 % Jeanne Sofia Other [facility] Other 04-05-2023 09:40-0400 Systolic blood pressure 160 mm[Hg] Jeanne Sofia Other [facility] Other Encounters Encounter Date Encounter Type Care Provider Facility Start: 07-10-2024 End: 07-10-2024 ambulatory [facility] Work Phone: Start: 07-10-2024 End: 07-10-2024 Patient encounter procedure [facility] Physician [facility] Work Phone: Start: 01-08-2024 End: 01-08-2024 ambulatory [facility] Work Phone: Start: 01-08-2024 End: 01-08-2024 Patient encounter procedure [facility] Physician [facility] Work Phone: Start: 07-10-2023 End: 07-10-2023 ambulatory Quynh Lomas Other [facility] Other Start: 07-10-2023 Office outpatient visit 15 minutes Quynh Stahlbehzad [facility] Start: 06-16-2023 End: 06-16-2023 ambulatory Quynh Stahllisachaya Other [facility] Other Start: 06-16-2023 Telephone encounter Quynh soriano [facility] Start: 06-12-2023 End: 06-12-2023 ambulatory Quynh Stahljuanfermin Other [facility] Other Start: 06-12-2023 Office outpatient ne w 30 minutes Quynh Stahlbehzad [facility] Start: 06-05-2023 End: 06-05-2023 Emergency department patient visit Reji Uriarte Facility:[facility] Start: 06-05-2023 End: 06-05-2023 Emergency department patient visit PHYSICIAN WHITNEY GRANADO [facility] Work Phone: Start: 04-05-2023 Office outpatient ne w 20 minutes Jeanne Sofia [facility] Start: 04-05-2023 End: 04-05-2023 ambulatory Jeanne Sofia Facility:[facility] Start: 04-05-2023 End: 04-05-2023 ambulatory [employer] Jeanne Sofia Work Phone: [facility] Work Phone: Start: 04-05-2023 End: 04-05-2023 Departed Referred [employer] Jeanne Kimberlyn Work Phone: [facility] [place] Work Phone: Start: 03-02-2022 End: 03-03-[address] CLAIRE VENTURA Facility:[facility] Start: 02-03-2022 End: 02-03-[address] CLAIRE VENTURA Facility:[facility] Start: 03-30-2021 End: 03-30-2021 ambulatory SUKHWINDER LUNSFORD Facility:[facility] Procedures Date Procedure Procedure Detail Performing Clinician Start: 06-05-2023 Plain chest X-ray PHYSI BOGDAN NO FAMILY Start: 06-05-2023 CT of head without contrast PHYSICIAN NO FAMILY Start: 04-05-2023 Urine culture PHYSICIAN NO FAMILY Plan of Treatment Date Care Activity Detail Author Start: 07-10-2024 Patient referral [facility] Work Phone: Start: 04-05-2023 Bacteria identified in Urine by Culture [facility] Comprehensive metabo lic 2000 panel - Serum or Plasma [facility] Patient Education High Blood Pre ssure (DC) [facility] Work Phone: Patient referral [facility] Work Phone: [facility] Payers Date Payer Category Payer Self-pay 1961 Medicare [id number] 1961 Unknown [id number] 1950 Unknown [id number] 1950 Unknown [id number] 1950 Unknown [id number] Unknown Regular Auto/Liability [id number] Unknown [id number] Unknown [id number] Social History Date Type Detail Facility Tobacco smoking status NHIS Unknown if ever smoked [facility] Work Phone: Start: 1950 Sex Assigned At Female F [facility] Sex Assigned At Sex Assigned At Bir th [facility] [employer] Other Start: 06-05-2023 End: 01-08-2024 Tobacco smoking status NHIS Ex-smoker (finding) [facility] Start: 07-10-2024 Sex Female (finding) [facility] Clinical Notes 04-10-2021 to 07-10-2023 Note Date & Type Note Facility 07-10-2023 Evaluation note Encounter Date Diagnosis Assessment Notes Jun, Primary hypertension (ICD-10 - I10) To goal. Prior to your visit today we reviewed your chart and outlined the tetsing and treatment needed for your care. We discussed the possible complications of high blood pressure, including increased risk for heart disease, stroke, and kidney disease. Our goal is to keep your blood pressure below 130/85 (an preferably < 120/80) and maintain a healthy weight with a BMI less than 26. We are working together to acheive these goals with the following plan; healthier diet, increased activity and exercise, understanding your medicaitons, and your complaince. You have been given relevant education handouts. [facility] Other 12-22-2023 Evaluation note* Encounter Date Diagnosis Assessment Notes Treatment Notes Treatment Clinical Notes May, Mixed hyperlipidemia (ICD-10 - E78.2) [facility] Other 12-18-2023 Evaluation note* Encounter Date Diagnosis Assessment Notes Treatment Notes Treatment Clinical Notes May, Primary hypertension (ICD-10 - I10) Not to goal. Take medication as prescribed, keep follow up appointments, get any testing that's been ordered done in a timely fashion. Do not smoke. Call if any questions or problems. For Hypertension: Patient is advised to work on healthy diet choices and appropriate servings, weight control, regular exercise as directed, and salt avoidance. Monitor blood pressures at home and call if above target. Prior to your visit today we reviewed your chart and outlined the tetsing and treatment needed for your care. We discussed the possible complications of high blood pressure, including increased risk for heart disease, stroke, and kidney disease. Our goal is to keep your blood pressure below 130/85 (an preferably < 120/80) and maintain a healthy weight with a BMI less than 26. We are working together to acheive these goals with the following plan; healthier diet, increased activity and exercise, understanding your medicaitons, and your complaince. You have been given relevant education handouts. May, Mixed hyperlipidemia (ICD-10 - E78.2) WIll repeat labs, has not had any in 2 years. May, Encounter for screening mammogram for malignant neoplasm of breast (ICD-10 - Z12.31) Patient is due for her routine yearly screening mammogram. Screening mammogram ordered today. May, History of breast cancer (ICD-10 - Z85.3) May, Former smoker (ICD-10 - Z87.891) [facility] Other 10-11-2023 Evaluation note* Encounter Date Diagnosis Assessment Notes Treatment Notes Treatment Clinical Notes Mar, Dysuria (ICD-10 - R30.0) Mar, Acute cystitis without hematuria (ICD-10 - N30.00) Drink plenty fluids, get plenty of rest. Take the Macrobid as prescribed until gone. Take Tylenol or Motrin as needed for aches pains or fevers. Follow-up with your family physician if no improvement in 2 to 3 days [facility] Other 10-27-2021 NoteChief Complaint consultation to review breast pathology HPI Staff 70 year old female presents on consultation from Dr. Lunsford to review pathology from needle localized biopsy left breast. Pathology completed 03/30/21 with parenchyma, calcifications and amorphous debris. History of left breast cancer 2014, received radiation as treatment. History of Present Illness 70 yo female with h/o htn, hyperlipidemia, referred for evaluation after left breast US-guided corebiopsy for new 1.2 cm spiculated lesion seen on screening mammogram and US; 4 core biopsies obtained; + calcifications and amorphous material on pathology, no suspicious cells; patient denies changesin breast self-exam; h/o small, several mm invasive breast cancer in 2014 treated with lumpectomy and XRT; on chemo; area in question near lumpectomy site; no asa or NSAID use; no tobacco use; no fmhx of breast or ovarian cancer. Review of Systems PHQ Score Initial Depression Screen Score: 0 ROS - Provider Constitutional: no fever, no sweats, no weight loss. Eyes: no glasses, no blurred vision, no visual loss. ENMT: no dentures, no hoarseness, no swallowing difficulties, no hearing loss, no ear infection(s),no nose bleeds. Cardiovascular: normal blood pressure, no chest pain, regular heartbeat, no heart murmur. Respiratory: no shortness of breath, no cough, no asthma, no wheezing. Gastrointestinal: no nausea, no vomiting, no diarrhea, no constipation, no blood in stool, no change in bowel habits, no abdominal pain, no hepatitis. Genitourinary: no kidney stones, no urine infection, no dysuria. Musculoskeletal: no pain, no weakness. Skin: no changing moles, no rash, no skin lumps. Neurologic: no seizures, no epilepsy, no headache. Psychiatric: no emotional or psychiatric problem. Heme/Lymph: no bleeding problems, no anemia, no blood clots, no transfusions. Allergy/Immunologic: no swollen lymph nodes/glands, no IV drug abuse. Other: Additional ROS info: Except as noted in the above Review of Systems and in the History of Present Illness, all other systems have been reviewed and are negative or noncontributory. Physical Exam Vitals & Measurements T: 36.3 ?C (Temporal Artery) HR: 72(Peripheral) RR: 16 BP: 128/92 HT: 165.1 cm HT: 165.1 cm WT: 69.1 kg WT: 69.1 kg BMI: 25.35 HEENT: normal conjunctiva, sclera clear, no scleral icterus, EOM intact, PERRLA. oral mucosa moist without lesions Neck: trachea midline , no mass, symmetric, no thyromegaly or nodules. no adenopathy Respiratory: lungs CTA, respirations non labored. Cardiovascular: regular rate and rhythm, no murmur, , no pedal edema or varicosities. Chest (Breasts): , no discharge, no palpable breast or axillary lumps, masses or tenderness. well-healed scar left medial breast, some thickening, no skin changes or retraction; Gastrointestinal: soft, non distended, no tenderness, no masses, no palpable hernias, diastasis recti no, no hepatosplenomegaly. normal bs Lymphatic: no cervical adenopathy, no axillary adenopathy, Musculoskeletal: normalgait, digits and nails without infection, nodes, cyanosis, clubbing. Skin: no rashes, no lesions, no ulcers, no subcutaneous nodules, induration. Psychiatric/Neuro: oriented to time, place, person, judgement normal, affect appropriate for age, insight intact, no focal deficits. Tests: x-rays reviewed, review of old records completed, Discussed surgical options, risks, and possible complications with patient. Assessment/Plan 1. Abnormal mammogram of left breast (R92.8: Other abnormal and inconclusive findings on diagnosticimaging of breast) 4 core biopsy samples through area with no suspicious cells; recommend f/u left mammogram in 6 months for new baseline study; call sooner if problems/questions; continue self-exams. 2. History of breast cancer (Z85.3: Personal history of malignant neoplasm of breast) see # 1 Follow-up No qualifying data available Problem List/Past Medical History Ongoing Abnormal mammogram of left breast BMI 25.0-25.9,adult History of breast cancer HTN (hypertension) Hypercholesterolemia Historical No qualifying data Procedure/Surgical History Ultrasound guided needle localization of lesion of left breast (03/30/2021), Stereotactically guided core needle biopsy of breast (05/16/2018), Colonoscopy (04/22/2015), Stereotactically guided core needle biopsy of breast (04/22/2015), Excision sebaceous cyst, Lumpectomy of left breast, Tonsillectomy, Tubal ligation, Wide excision. Medications atorvastatin 40 mg Tab, 40 mg= 1 tab(s), Oral, Daily carvedilol 12.5 mg Tab, 12.5 mg= 1 tab(s), Oral, BID Allergies No Known Allergies No Known Medication Allergies Social History Alcohol - Denies Alcohol Use, 04/21/2021 Substance Abuse - Denies Substance Abuse, 04/21/2021 Tobacco Former smoker, quit more than 30 days ago Tobacco Use:. Never Smokeless Tobacco Use:. Cigarettes, Started age 30.0 Years. Stopped age 60 Years., (more content not included)...[facility] HospitalComment on above:Result Comment: Electronically Signed By: RENITA UGARTE, Eric Romero\Date and Time Signed: 04/21/21 20:49 [id number] NoteHNO ID: [id number] Author: Sukhwinder Lunsford MD Service: ? Author Type: Physician Type: Progress Notes Filed: 04/28/2021 2:54 AM Note Text: Radiation Oncology - Follow Up Note PATIENT NAME: Lori Raymond PATIENT DIAGNOSIS/PATIENT IDENTIFICATION: Ms. 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 Gong completing on 07/29/2015 (6120 cGy in 34 fractions). INTERVAL HISTORY/ROS: Ms. Raymond returns to clinic today approximately 4-1/2 years out from the completion of her radiation treatments to the left breast. She has been doing well clinically and notes an occasional twinge but no substantial pain or discomfort in the left breast or any skin irritation/breakdown. She reports intact range of motion and no signs of lymphedema. She denies feeling any new lumps or bumps. She endorses good energy appetite and hydration. She had a bilateral mammogram on 03/08/2021 which noted a 1.4 cm slightly spiculated mass in the posterior central left breast at approximately 12:00. This was confirmed on ultrasound and biopsy was recommended. Ultrasound-guided biopsy was performed in the 03/08/2000 hemoglobin returned as breast parenchyma, calcifications and debris with a definite evidence of malignancy. She otherwise denies any recent fevers, chills, headaches, difficulty with speech/swallowing, shortness of breath, chest pain/palpitations, abdominal pain, nausea, vomiting, change in bowel/urinary habits, difficulty with gait/balance, recent falls, etc. The remainder of the review of systems was performed and was otherwise noncontributory. ALLERGIES ALLERGIES No Known Allergies MEDICATIONS: No current outpatient medications on file. PHYSICAL EXAM: GENERAL: eldelry woman sitting in chair in no acute distress. VITALS: BP 171/77[repeat 182/84[ Pulse 74 Temp 98.2 Wt 152 lb 9.6 oz (69.2kg) SpO2 98% KPS: 90 HEENT: NC/AT, anicteric sclera HEART: [id number]: non-labored breathing ABDOMEN: soft MUSCULOSKELETAL: no peripheral edema, moves all extremities. NEURO: no focal deficit; AANDO X3. RADIOLOGIC DATA: Bilateral Mammogram and Left Breast US (03/08/2021) PATHOLOGIC DATA: 03/30/2021 ASSESSMENT AND PLAN: Ms. Raymond is a 70-year old woman with Stage IA ([id number]) infiltrating ductal carcinoma of the upper outer quadrant of left breast; status post lumpectomy and sentinel lymph node biopsy; status post radiation therapy to the left breast under the care of Dr. Gong completing on 07/29/2015 (6120 cGy in 34 fractions). Ms. Raymond is doing well clinically approximately 4 and half years after the completion of her radiation treatments with no appreciable sequela.. Her annual mammogram noted an abnormality in the area of the left breast which was biopsied and no evidence of malignancy was identified. She has now had multiple biopsies in this area due to abnormal imaging. 4 I will request a referral with her surgeon for further evaluation and surveillance recommendations. Otherwise I will plan to see her back in approximately 1 year with repeat mammogram. The patient is aware to contact the clinic in the interim should any questions or concerns arise. Thank you for allowing us to participate in the care of this patient. Signed by: Sukhwinder Lunsford MD I spent a total of 20 minutes on the date of the service which included preparing to see the patient, [id number] patient care and counseling and educating the patient/family/caregiver. This document has been created with the use of voice recognition technology. It may contain inaccuracies, misspellings, inaccurate syntax or inappropriate word context that are a result of the inadequacies/shortcomings of said technology/software.[facility] Evaluation noteNo assessment information availableMercy Health West Hospital Work Phone: Evaluation note* Diagnosis Onset Date Resolution Status HTN (hypertension) acute Mixed hyperlipidemia acute [facility] Work Phone: Evaluation note* Diagnosis Onset Date Resolution Status Admit Date History of breast cancer acute July 10, 2024 8:23am HTN (hypertension) acute Januar y 2024 8:23am Mixed hyperlipidemia acute [place] 2024 8:23am Normal body mass index (BMI) acute July 10, 2024 8:23am [facility] Work Phone: History general Narrative - Reported* Type Description Date Medical History Breast cancer Surgical History lumpectomy, left breast Surgical History tubal ligation Surgical History tonsillectomy Surgical History prolapsed bladder 2021 Hospitalization History see above [employer] Other History general Narrative - Reported* Type Description Date Medical History Breast cancer Surgical History lumpectomy, left breast Surgical History tubal ligation Surgical History tonsillectomy Surgical History prolapsed bladder 2021 Surgical History Hysterectomy 2021 Hospitalization History see above [facility] Other Hospital Discharge instructions Additional Instructions Follow-up with your primary care doctor Return to ED with worsening symptoms or concernsMer[facility] Work Phone: Hospital Discharge instructionsAmbulatory Orders* Referral to Podiatry Time Frame: 07/10/24, Location: None Selected [facility] Work Phone: Summary Purpose Family History Relationship Condition Age at Onset Recorded Date/T natalie father Unknown Advance Directives Advance Directive Response Recorded Date/ Time Advance Directives No November 21 3:59pm Advance Directive Response Recorded Date/ Time Advance Directives No November 21 2:59pm Chief Complaint and Reason for Visit Chief Complaint Dysuria Chief Complaint r30.0 lt eye issues, sent by dr Chief Leroy 6 month follow up Reason for Visit HTN (hypertension) Mixed hyperlipidemia Chief Complaint Admit Date 6 Month f/u July 10, 2024 8 :23am Reason for Visit Admit Date History of breast cancer July 10, 2 025 8:23am HTN (hypertension) July 10, 2024 8 :23am Mixed hyperlipidemia July 10, 2024 8:23am Normal body mass index (BMI) June 8:23am Additional Source Comments INFORMATION SOURCE (unrecogn ized section and content) DATE CREATED AUTHOR [facility]20[facility] DATE CREATED AUTHOR AUTHOR'S ORGANIZ ATION 04/29/2021 [facility] DATE CREATED AUTHOR AUTHOR'S ORGANIZ ATION 03/25/2022 Alton gill DATE CREATED AUTHOR AUTHOR'S ORGANIZ ATION 07/01/2023 [facility] Care Teams (unrecognized sec tion and content) Team Status: Inactive Member Role Status Dates CHEPE Carbajal Attending Provider Active Team Status: Active Member Role Status Dates PHYSICIAN NO FAMILY Primary Care Provider Active Team Status: Inactive Member Role Status Dates PHYSICIAN NO FAMILY Primary Care Provider Active Reji Uriarte , DO Emergency Provider Active Team Status: Active Member Role Status Dates Quynh Lomas APRN [employer] Primary Care Provider Active Team Status: Inactive Member Role Status Dates Quynh Lomas APRN [employer] Primary Care Provider, Attending Provider Active Start: January 08, 2024 End: January 08, 2024 Team Status: Inactive Member Role Status Dates Quynh Lomas APRN [employer] Primary Care Provider, Attending Provider Active Start: July 10, 2024 End: July 10, 2024 Goals (unrecognized section and content) Goals may be documented in a n alternate sectionNo InformationNo InformationGoals may be documented in an alternate sectionNo InformationNo InformationNo InformationGoals may be documented in an alternate sectionGoals may be documented in an alternate section REASON FOR VISIT (unrecogniz ed section and content) POSSIBLE UTIPOSSIBLE UTIEsta blish/ BPlab results4 Week Check Up FOR RECORDS PERTAINING TO PATIENTS WHO ARE OR HAVE BEEN ENROLLED IN A CHEMICAL DEPENDENCY/SUBSTANCEABUSE PROGRAM, SOME INFORMATION MAY BE OMITTED. This clinical summary was aggregated from multiple sources. Caution should be exercised in using it in the provision of clinical care. This summary normalizes information from multiple sources, and as a consequence, information in this document may materially change the coding, format and clinical context of patient data. In addition, data may be omitted in some cases. CLINICAL DECISIONS SHOULD BE BASED ON THE PRIMARY CLINICAL RECORDS. [employer] [facility]. provides no warranty or guarantee of the accuracy or completeness of information in this document.
[2024-07-19 10:32] LABS: Basophils Absolute Auto 0.1 10^3/uL (0.0-0.1); Basophils Percent Auto 0.6 % (0.2-2.0); Eosinophils Absolute Auto 0.7 10^3/uL (0.0-0.7); Eosinophils Percent Auto 8.7 % (0.9-7.0); Hematocrit 41.8 % (36.0-48.0); Hemoglobin 13.4 g/dL (12.0-16.0); Immature Granulocytes Abs Auto 0.01 10^3/uL (0.00-0.03); Immature Granulocytes Pct Auto 0.1 % (0.0-0.5); Mean Corpuscular HGB Conc 32.1 g/dL (29.9-35.2); Mean Corpuscular Hemoglobin 30.5 pg (26.7-34.0); Mean Platelet Volume 11.9 fL (9.5-13.5); Monocytes Absolute Auto 0.7 10^3/uL (0.3-0.8); Monocytes Percent Auto 7.8 % (1.7-12.0); Neutrophils Absolute Auto 4.9 10^3/uL (1.4-6.5); Neutrophils Percent Auto 58.8 % (43.0-75.0); Platelet Count 201 10^3/uL (150-450); White Blood Count 8.4 10^3/uL (4.0-11.0)
[2024-07-19 10:42] LABS: Alanine Aminotransferase 17 U/L (14-59); Albumin Level 3.5 g/dL (3.4-5.0); Alkaline Phosphatase 117 U/L (46-116); Anion Gap 5.3; Aspartate Amino Transferase 13 U/L (15-37); BUN Creatinine Ratio 21.5; Bilirubin Total 0.9 mg/dL (0.2-1.0); Carbon Dioxide 34.9 mmol/L (21.0-32.0); Chloride 103 mmol/L (98-107); Chol HDL Ratio 2.9; Cholesterol 184 mg/dL (<=200); Estimated GFR (African America >60 (>=60 mL/min/1.73m^2); Estimated GFR (Non-African Ame >60 (>=60 mL/min/1.73m^2); Globulin 3.6 g/dL; Glucose 93 mg/dL (74-106); HDL Cholesterol 64 mg/dL (40-60); Potassium 4.2 mmol/L (3.5-5.1); Sodium 139 mmol/L (136-145); Total Protein 7.1 g/dL (6.4-8.2); Triglycerides 94 mg/dL (<=150); VLDL CHOLESTEROL 18.8 mg/dL
== END 2024-07-19 09:59 | disposition home or self-care (01) ==
LOC: LAB 09:59
PROVIDERS: PCP Nurse Practitioner Family; Visit Provider Nurse Practitioner Family
DX: E78.2 Mixed hyperlipidemia (principal); I10 Essential (primary) hypertension
CPT/HCPCS: 36415; 80053; 80061; 85025

== ENCOUNTER 2025-03-26 08:17 | Outpatient (OUT) | payer MEDICARE, SELFPAY ==
--- OUTSIDE RECORDS SUMMARY | 2024-07-23 06:45 | XMS_ITS ---
Author Organization [facility] in [place] Address [address] [place] [address] Care Team Providers Care Sharepoint Trainer Name Role Phone BeatrizChristopher sierra [phone] REASON FOR VISIT Referral from rodger lopez for bunion rt foot Encounters Encounter Location Date Provider Diagnosis [facility] (PODIAT[facility]) [address] [place] [address] [place] [address] 07/23/2024 Christopher Alcaraz Left foot pain M79.672 and Right foot pain M79.671 Assessments Encounter Date Diagnosis (ICD Code) Assessment Notes Treatment Notes Treatment Clinical Notes Section Notes 07/23/2024 Left foot pain (ICD-10 - M79.672) 07/23/2024 Right foot pain (ICD-10 - M79.671) Plan Of Treatment Pending Test Test Name Order Date XR Foot LT (3 views) * 07/23/2024 XR Foot RT (3 views) * 07/23/2024 Progress Notes * SEGUNDO IzzyB:1950 (74 yo F)Acc No.[id number]:07/23/2024 UNLOCKED PROGRESS NOTE New Patient Patient: Lori HULL Provider: Yohana Alcaraz DPM, MS :1950 A ge:73 Y S ex:Female Date:07/23/2024 Address:[address] [place] [address] [id number] Subjective: * Chief Complaints: * 1 . Referral from rodger lopez for bunion rt foot. * Medical History: Objective: * Vitals: Assessment: * Assessment: 1. L eft foot pain - M79.672 2 . R ight foot pain - M79.671 ? Plan: * Treatment: 2. R ight foot pain I maging: XR Foot RT (3 views) * * * Electronic signature of Jeffrey Alcaraz DPM on 03/25/2025 at 12:23 PM EDT Sign off status: Pending Visit Status: C ANC (Cancelled) * Provider: Yohana Alcaraz DPM, MS Date: 0 07/23/2024 Generated for Misti galvin/Abhilash/Jonelsmitting on: 0 03/25/2025 12:23 PM EDT
--- OUTSIDE RECORDS SUMMARY | 2024-07-23 06:45 | XMS_ITS ---
Author Organization [facility] in [place] Address [address] [place] [address] Care Team Providers Care Television Analyzer Name Role Phone BeatrizChristopher sierra [phone] REASON FOR VISIT Referral from rodger lopez for bunion rt foot Encounters Encounter Location Date Provider Diagnosis [facility] ([facility]) [address] [place] [address] [place] [address] 07/23/2024 Christopher Alcaraz Left foot pain M79.672 [...] Notes * SEGUNDO IzzyB:1950 (74 yo F)Acc No.[id number]:07/23/2024 UNLOCKED PROGRESS NOTE New Patient Patient: Lori HULL Provider: Yohana Alcaraz DPM, MS :1950 A ge:73 Y S ex:Female Date:07/23/2024 Address:[address] [place] [address] [id number] Subjective: * Chief Complaints: * 1 . [...] Electronic signature of Jeffrey Alcaraz DPM on 03/26/2025 at 08:19 AM EDT Sign off status: Pending Visit Status: C ANC (Cancelled) * Provider: Yohana Alcaraz DPM, MS Date: 0 07/23/2024 Generated for Misti galvin/Abhilash/Jonelsmitting on: 1 08:19 AM EDT
--- OUTSIDE RECORDS SUMMARY | 2025-03-25 12:23 | XMS_ITS | Encounter Summary ---
Author Organization [facility] Address [address] [place] [address] Care Team Providers Care Fiscal Economist Name Role Phone Aracelis Jacome MD Unavailable Aracelis Jacome MD Primary Care Provider [phone] Aracelis Jacome MD Unavailable Encounter Details Date Type Department Care Team (Late st Contact Info) Description 06/08/2023 Abstract [facility] 112 [facility] 110 [place] [id number] Aracelis Jacome MD 112 [facility] 110 [place] [address] Social History Tobacco Use Types Packs/Day Years Used Date Smoking Tobacco: Never Assessed Comments Unknown Sex and Gender Information Value Date Recorded Sex Assigned at Not on file Legal Sex Female 6:52 PM EDT Gender Identity Not on file Sexual Orientation Not on file documented as of this encounter Plan of Treatment Not on file documented as of this encounter Visit Diagnoses Not on filedocumented in this encounter Care Teams Fiscal Economist Relationship Specialty Start Date End Date Aracelis Jacome MD 112 [facility] 110 [place] [address] PCP - ACO Reach 11/17/22 08/01/24 Aracelis Jacome MD 112 [facility] 110 [place] [address] PCP - General Family Medicine 11/01/22 Aracelis Jacome MD 112 [facility] 110 [place] [address] PCP - ACO Reach 08/09/24 09/26/24 documented as of this encounter
--- OUTSIDE RECORDS SUMMARY | 2025-03-25 12:24 | XMS_ITS | Patient Health Record ---
Author Organization [facility] in [place] Address [address] [place] [address] Care Team Providers Care Juice Weigher Name Role Phone Christopher Alcaraz [phone] Reason For Referral No Information Problems Problem Type SNOMED Code ICD Code Onset Dates Problem Status W/U Status Risk Notes Problem Pain in right foot (480376132717 107) Right foot pain (M79.671) Active confirmed Problem Pain in left foot (257913365405 107) Left foot pain (M79.672) Active confirmed Plan Of Treatment No Information Insurance Providers Payer Name Payer Address Payer Phone Subscriber Number Group Number Insured Name Patient Relationship to Insured Coverage Start Date Coverage End Date [place] [address] [place] [address] [id number] Lori Osborne Self - patient is the insured [facility] [address] [place] [address] [id number] Lori Osborne Self - patient is the insured
--- OUTSIDE RECORDS SUMMARY | 2025-03-26 08:20 | XMS_ITS | Patient Health Record ---
Author Organization [facility] [place] Address [address] [place] [address] Care Team Providers Care Conveyor Maintenance Mechanic Name Role Phone Christopher Alcaraz [phone] Reason For Referral No Information Problems Problem Type SNOMED Code ICD Code Onset Dates Problem Status W/U Status Risk Notes Problem Pain in right foot (442751770637 107) Right foot pain (M79.671) Active confirmed Problem Pain in left foot (682892908986 107) Left foot pain (M79.672) Active confirmed Plan Of Treatment No Information Insurance Providers Payer Name Payer Address Payer Phone Subscriber Number Group Number Insured Name Patient Relationship to Insured Coverage Start Date Coverage End Date [place] [address] [place] [address] [id number] Lori Osborne Self - patient is the insured [facility] [address] [place] [address] [id number] Lori Osborne Self - patient is the insured
--- OUTSIDE RECORDS SUMMARY | 2025-03-26 08:20 | XMS_ITS | Encounter Summary ---
Author Organization [facility] Address [address] [place] [address] Care Team Providers Care Utilities Service Investigator Name Role Phone Aracelis Jacome MD Unavailable Aracelis Jacome MD Primary Care Provider [phone] Aracelis Jacome MD Unavailable Encounter Details Date Type Department Care Team (Late st Contact Info) Description 06/08/2023 Abstract [facility] 112 [facility] 110 [place] [id number] Aracelis Jacome MD 112 [facility] 110 [place] [address] Social History Tobacco Use Types Packs/Day Years [...] on filedocumented in this encounter Care Teams Utilities Service Investigator Relationship Specialty Start Date End Date Aracelis Jacome MD 112 [facility] 110 [place] [address] PCP - ACO Reach 11/17/22 08/01/24 Aracelis Jacome MD 112 [facility] 110 [place] [address] PCP - General Family Medicine 11/01/22 Aracelis Jacome MD 112 [facility] 110 [place] [address] PCP - ACO Reach 08/09/24 09/26/24 documented as of this encounter
--- OUTSIDE RECORDS SUMMARY | 2025-03-26 08:20 | XMS_ITS | Clinical Summary ---
Author Organization [facility] Address [address] [place] [address] Care Team Providers Care Parts Product Analyst Name Role Phone Aracelis Dickerson MD Primary Care Provider [phone] Social History Tobacco Use Types Packs/Day Years Used Date Smoking Tobacco: Never Assessed Comments Unknown Sex and Gender Information Value Date Recorded Sex Assigned at Not on file Legal Sex Female 6:52 PM EDT Gender Identity Not on file Sexual Orientation Not on file Last Filed Vital Signs Vital Sign Reading Time Taken Comments Blood Pressure 136/84 04/11/2022 12:00 PM EDT Pulse - - Temperature - - Respiratory Rate - - Oxygen Saturation - - Inhaled Oxygen Concentration - - Weight 70.2 kg (154 lb 12.8 oz) 022 12:00 PM EDT Height 165.1 cm (5' 5 ) 04/11/2022 12:0 0 PM EDT Body Mass Index 25.76 04/11/2022 12:00 PM EDT Plan of Treatment Health Maintenance Due Date Last Done Comments Pneumococcal Vaccine: 65+ Ye ars (2 of 2 - PCV) 06/29/2020 06/29/2019 Medicare Annual Wellness (AWV) 01/07/2025 01/08/2024 , 02/03/2022 Influenza Vaccine (#1) 2025 , 04/08/2022, 03/29/2021, Additional history exists Colonoscopy Discontinued 03/16/2015 Colorectal Cancer Screening Discontinued Mammogram Discontinued 03/08/2021, 12/25, 11/15/2017, Additional history exists CT Colonography Discontinued FIT-DNA Discontinued FIT Discontinued FOBT Discontinued Sigmoidoscopy Discontinued Procedures Procedure Name Priority Date/Time Associated Diagnosis Comments BI MAMMOGRAM DIAGNOSTIC BILATERAL Routine 03/08/2021 COLONOSCOPY Routine 03/16/2015 12:00 PM EDT from Last 3 Months or Most Recently Relevant to Health Maintenance Results * Bilateral diagnostic mammogram (03/08/2021) Anatomical Region Laterality Modality Breast Bilateral Mammography Narrative 03/08/2021 12:00 AM EDT PERFORMED AT [facility] LOCATION:[place] [address] Patient: SEGUNDO Zhou Exam Date: 03/08/2021 : 1950 Gender:F Ordering : DR. RAMU POWELL M.D. Admission #: [id number] Family : DR ARACELIS DICKERSON M.D. Order #: [id number] CLICK HERE TO VIEW EXAM RADIOLOGY REPORT PROCEDURE: MAMMOGRAM DIAGNOSTIC 3D BILATERAL CAD 03/08/2021 08:32 ULTRASOUND BREAST LEFT LIMITED 03/08/2021 10:03 COMPARISON: MG MAMM CHON DIAG W CAD 01/17/2020. MAMMO POST BIOPSY LEFT 05/16/2018. INDICATIONS: Personal history of malignant neoplasm of breast Calculator Name NCI Breast Cancer Risk Assessment Tool 5 Year Breast Cancer Risk 4.20% Lifetime Breast Cancer Risk 10.60% Personal Breast Cancer No Personal Ovarian Cancer No Treatments None Family Cancers None LOCATION: [facility] BREAST COMPOSITION: Scattered areas fibroglandular density. FINDINGS: DIAGNOSTIC CATEGORY 4--SUSPICIOUS FOR MALIGNANCY BUT FINDING DOES NOT EXHIBIT CLASSIC FINDINGS OF BREAST CANCER: RIGHT BREAST: No significant suspicious finding. No appreciable change. LEFT BREAST: 1.4 cm slightly spiculated rounded mass within the posterior central breast near the chest wall approximately 12:00. Ultrasound evaluation demonstrates a 1.8 x 1.7 x 1.4 cm slightly geographic shaped hypoechoic mass at the 12:00 p.m. 7 cm from the nipple. Ultrasound-guided biopsy is recommended. RECOMMENDATIONS: ULTRASOUND-GUIDED CORE BIOPSY: LEFT BREAST PLEASE NOTE: A NORMAL MAMMOGRAM DOES NOT EXCLUDE THE POSSIBILITY OF BREAST CANCER. A CLINICALLY SUSPICIOUS PALPABLE LUMP SHOULD BE BIOPSIED. Dictated by: Hilton Sheth M.D. on 03/08/2021 at 12:45 Approved by: Hilton Sheth M.D. on 03/08/2021 at 13:19 Procedure Note CONVERSION, GENERIC - 12/30/2022 PERFORMED AT [facility] LOCATION:[place] [address] Patient: SEGUNDO Zhou Exam Date: 03/08/2021 : 1950 Gender:F Ordering : DR. RAMU POWELL M.D. Admission #: [id number] Family : DR ARACELIS DICKERSON M.D. Order #: [id number] CLICK HERE TO VIEW EXAM RADIOLOGY REPORT PROCEDURE: MAMMOGRAM DIAGNOSTIC 3D BILATERAL CAD 03/08/2021 08:32 ULTRASOUND BREAST LEFT LIMITED 03/08/2021 10:03 COMPARISON: MG MAMM CHON DIAG W CAD 01/17/2020. MAMMO POST BIOPSY LEFT 05/16/2018. INDICATIONS: Personal history of malignant neoplasm of breast Calculator Name NCI Breast Cancer Risk Assessment Tool 5 Year Breast Cancer Risk 4.20% Lifetime Breast Cancer Risk 10.60% Personal Breast Cancer No Personal Ovarian Cancer No Treatments None Family Cancers None LOCATION: [facility] BREAST COMPOSITION: Scattered areas fibroglandular density. FINDINGS: DIAGNOSTIC CATEGORY 4--SUSPICIOUS FOR MALIGNANCY BUT FINDING DOES NOTEXHIBIT CLASSIC FINDINGS OF BREAST CANCER: RIGHT BREAST: No significant suspicious finding. No appreciablechange. LEFT BREAST: 1.4 cm slightly spiculated rounded mass within theposterior central breast near the chest wall approximately 12:00. Ultrasound evaluation demonstrates a 1.8 x 1.7 x 1.4 cm slightlygeographic shaped hypoechoic mass at the 12:00 p.m. 7 cm from the nipple. Ultrasound-guided biopsy is recommended. RECOMMENDATIONS: ULTRASOUND-GUIDED CORE BIOPSY: LEFT BREAST PLEASE NOTE: A NORMAL MAMMOGRAM DOES NOT EXCLUDE THE POSSIBILITY OFBREAST CANCER. A CLINICALLY SUSPICIOUS PALPABLE LUMP SHOULD BE BIOPSIED. Dictated by: Hilton Sheth M.D. on 03/08/2021 at 12:45 Approved by: Hilton Sheth M.D. on 03/08/2021 at 13:19 us Aracelis Dickerson MD IMG BI PROCEDURES Final Result * Colonoscopy (03/16/2015 12:00 PM EDT) Anatomical Region Laterality Modality Endoscopy 03/16/2015 12:0 0 PM EDT Narrative 03/16/2015 12:00 PM EDT PERFORMED AT [facility] LOCATION:[id number] Diverticulosis of coli Procedure Note CONVERSION, GENERIC - 11/10/2022 PERFORMED AT [facility] LOCATION:[id number] Diverticulosis of coli Aracelis Dickerson MD ENDOSCOPY PROCEDURE ORDERABLES F inal Result from Last 3 Months or Most Recently Relevant to Health Maintenance Insurance MEDICARE Care Teams Parts Product Analyst Relationship Specialty Start Date End Date Aracelis Dickerson MD 112 [facility] 110 [place] [address] PCP - General Family Medicine 11/01/22
--- OUTSIDE RECORDS SUMMARY | 2025-03-26 08:20 | XMS_ITS | Clinical Summary ---
Author Organization [facility] Address [address] [place], [place] [address] Care Team Providers Care Senior Landscape Architect Name Role Phone Aracelis Jacome MD Primary Care Provider [phone] Allergies No known active allergies Medications No known medications Active Problems Problem Noted Date Diagnosed Date History of breast cancer in female 01/14/2016 Breast cancer of upper-outer quadrant of left fe male breast 05/14/2015 Breast cancer 04/10/2015 Family History Medical History Relation Comments Heart Father Alzheimer's Disease Mother Relation Status Comments Father Mother Alive Alzheimers Social History Tobacco Use Types Packs/Day Years Used Date Smoking Tobacco: Former Cigarettes Q uit: 04/10/2012 Smokeless Tobacco: Never Alcohol Use Standard Drinks/Week Comments No 0 (1 standard drink = 0.6 oz pur e alcohol) occ PHQ-2 Answer Date Recorded PHQ-2 score 0 04/09/2021 Area Deprivation Index Answer Date Quin[place] rded National Score (1-100), lower number is lower ri sk Not on file 06/03/2020 State Score (1-10), lower number is lower risk N ot on file 06/03/2020 Data from: https://www.neighborhoodatlas.[facility] Last address used for calculation Not on file 06/03/2020 Comments No Sex and Gender Information Value Date Recorded Sex Assigned at Not on file Legal Sex Female 11:46 AM EDT Gender Identity Not on file Sexual Orientation Not on file Last Filed Vital Signs Vital Sign Reading Time Taken Comments Blood Pressure 171/77 04/09/2021 9:41 AM EDT repeat 182/84 Pulse 74 04/09/2021 9:41 AM EDT Temperature 36.8 C (98.2 F) 04/09/2021 9:41 AM EDT Respiratory Rate 18 02/03/2020 12:4 2 PM EDT Oxygen Saturation 98% 04/09/2021 9:4 1 AM EDT Inhaled Oxygen Concentration - - Weight 69.2 kg (152 lb 9.6 oz) 04/09/2021 9:41 AM EDT Height 165.1 cm (5' 5 ) 05/12/2016 9:18 AM EST Body Mass Index 25.39 05/12/2016 9:18 AM EST Plan of Treatment Health Maintenance Due Date Last Done Comments Anxiety Screening 1966 Depression Screening 1966 Hepatitis C Screening 1966 DTaP,Tdap,Td Vaccine (1 - Tdap) 12/22/1967 Diabetes Screening 1993 Shingrix Vaccine (1 of 2) 1998 Bone Density Screening 2013 Pneumococcal Vaccine: 50+ (2 of 2 - PCV) 06/29/2020 06/29/2019 RSV Vaccine (1 - 1-dose 75+ series) 12/22/2023 Advance Directive Discussion 06/26/2024 Influenza Vaccine (#1) 2025 , 04/15/2020, 06/29/2019, Additional history exists Insurance MEDICARE Care Teams Senior Landscape Architect Relationship Specialty Start Date End Date Aracelis Jacome MD PCP - General Family Medicine 04/07/15
[2025-03-26 08:51] LABS: Hematocrit 41.9 % (36.0-48.0); Hemoglobin 13.5 g/dL (12.0-16.0); Immature Granulocytes Abs Auto 0.02 10^3/uL (0.00-0.03); Immature Granulocytes Pct Auto 0.2 % (0.0-0.5); Lymphocytes Absolute Auto 2.4 10^3/uL (1.2-3.8); Mean Corpuscular HGB Conc 32.2 g/dL (29.9-35.2); Mean Corpuscular Hemoglobin 30.5 pg (26.7-34.0); Mean Corpuscular Volume 94.8 fL (81.0-99.0); Platelet Count 220 10^3/uL (150-450); Red Blood Count 4.42 10^6/uL (4.20-5.40); White Blood Count 8.5 10^3/uL (4.0-11.0)
[2025-03-26 10:06] LABS: Alanine Aminotransferase 30 U/L (14-59); Albumin Globulin Ratio 0.9; Albumin Level 3.5 g/dL (3.4-5.0); Alkaline Phosphatase 130 U/L (46-116); Anion Gap 10.8; Aspartate Amino Transferase 20 U/L (15-37); Blood Urea Nitrogen 21.0 mg/dL (7.0-18.0); Calcium 8.8 mg/dL (8.5-10.1); Carbon Dioxide 30.4 mmol/L (21.0-32.0); Chloride 104 mmol/L (98-107); Cholesterol 194 mg/dL (<=200); Estimated GFR (African America >60 (>=60 mL/min/1.73m^2); Estimated GFR (Non-African Ame >60 (>=60 mL/min/1.73m^2); Globulin 4.0 g/dL; Glucose 91 mg/dL (74-106); HDL Cholesterol 64 mg/dL (40-60); Potassium 4.2 mmol/L (3.5-5.1); Sodium 141 mmol/L (136-145); Total Protein 7.5 g/dL (6.4-8.2); Triglycerides 72 mg/dL (<=150); VLDL CHOLESTEROL 14.4 mg/dL
== END 2025-03-26 08:18 | disposition home or self-care (01) ==
LOC: LAB 08:18
PROVIDERS: PCP Nurse Practitioner Family; Visit Provider Nurse Practitioner Family
DX: E78.2 Mixed hyperlipidemia (principal); I10 Essential (primary) hypertension
CPT/HCPCS: 36415; 80053; 80061; 85025